=== PATIENT | male | born 1940 | race Caucasian/White ===

== ENCOUNTER 2020-04-21 08:38 | Outpatient (REF) | payer MEDICARE, SELFPAY ==
[2020-04-21 11:11] LABS: MANUAL DIFF FLAG NO
[2020-04-21 11:14] LABS: Basophils Percent Auto 0.4 % (0-2); Eosinophils Absolute Auto 0.1 X10*3/uL (0.0-0.4); Eosinophils Percent Auto 1.6 % (0-4); Hematocrit 40.4 % (42-52); Hemoglobin 13.5 g/dl (14.0-18.0); Imm Gran Abs Auto 0.02 X10*3/uL (0.00-0.03); Imm Gran Pct Auto 0.4 % (0.0-0.4); Lymphocytes Absolute Auto 1.7 X10*3/uL (1.2-4.9); Lymphocytes Percent Auto 29.8 % (20-40); Mean Corpuscular HGB Conc 33.4 g/dl (31.0-36.0); Mean Corpuscular Hemoglobin 30.5 pg (27.0-33.0); Mean Corpuscular Volume 91.4 fL (80-98); Mean Platelet Volume 11.7 fL (9.4-12.4); Monocytes Absolute Auto 0.4 X10*3/uL (0.1-1.2); Monocytes Percent Auto 7.4 % (2-11); Neutrophils Absolute Auto 3.4 X10*3/uL (2.0-8.3); Neutrophils Percent Auto 60.4 % (45-73); Platelet Count 142 X10*3/uL (160-400); Red Blood Count 4.42 X10*6/uL (4.60-5.80); Red Cell Distribution Width 13.2 % (11.0-16.0); White Blood Count 5.6 X10*3/uL (4.8-10.8)
[2020-04-21 11:39] LABS: Estimated Average Glucose 143 mg/dL; Hemoglobin A1c % 6.6 %
[2020-04-21 11:50] LABS: Alanine Aminotransferase 24 U/L (0-40); Albumin Level 4.3 g/dL (3.5-5.0); Alkaline Phosphatase 65 U/L (39-117); Anion Gap 11 (12-20); Aspartate Amino Transferase 28 U/L (5-37); Bilirubin Total 0.9 mg/dL (0.0-1.0); Blood Urea Nitrogen 27 mg/dL (9-16); Calcium 8.8 mg/dL (8.4-10.2); Carbon Dioxide 31 mmol/L (22-29); Chloride 102 mmol/L (96-108); Cholesterol 111 mg/dL; Estimated Glomerular Filt Rate > 60; Glucose Fasting 137 mg/dL (60-99); HDL Cholesterol 33 mg/dL; LDL Cholesterol Calculated 62 mg/dl; Potassium 3.6 mmol/l (3.3-5.1); Sodium 140 mmol/L (135-145); Triglycerides 80 mg/dL; Uric Acid 3.7 mg/dL (3.4-7.0)
[2020-04-21 11:53] LABS: Glucose Urine UA NEG (NEG); Leukocyte Esterase Urine NEG (NEG); Nitrite Urine NEG (NEG); PH 5.5 (5.0-8.0); Specific Gravity - Urine 1.025 (1.005-1.025); Urine Blood NEG (NEG); Urine Ketones NEG (NEG); Urine Protein NEG (NEG-TRACE)
[2020-04-21 11:56] LABS: Appearance Urine CLEAR; Color Urine YELLOW
[2020-04-21 12:14] LABS: Creatinine Urine 108.12 mg/dL; Microalbum/Creatinine Ratio Ur 18.4 ug/mg cr
[2020-04-21 12:15] LABS: Calcium Oxalate Crystals Urine 2+ /LPF; RBC Urine 0 /HPF (0); WBC Urine 0-2 /HPF (0-4)
== END 2020-04-21 08:39 | disposition home or self-care (01) ==
LOC: HO.HMGCLDS 08:38
PROVIDERS: PCP Internal Medicine; Visit Provider Internal Medicine
DX: E11.9 Type 2 diabetes mellitus without complications (principal); E78.5 Hyperlipidemia, unspecified; E55.9 Vitamin D deficiency, unspecified; I10 Essential (primary) hypertension
CPT/HCPCS: 36415; 80053; 80061; 81001; 82043; 82306; 83036; 84550; 85025

== ENCOUNTER 2020-09-01 09:24 | Outpatient (REF) | payer MEDICARE, SELFPAY ==
[2020-09-01 10:26] LABS: MANUAL DIFF FLAG NO
[2020-09-01 10:52] LABS: Glucose Urine UA NEG (NEG); Leukocyte Esterase Urine NEG (NEG); Nitrite Urine NEG (NEG); PH 6.5 (5.0-8.0); Specific Gravity - Urine 1.015 (1.005-1.025); Urine Blood NEG (NEG); Urine Ketones NEG (NEG); Urine Protein NEG (NEG-TRACE)
[2020-09-01 10:54] LABS: Appearance Urine CLEAR; Color Urine YELLOW
[2020-09-01 10:59] LABS: Basophils Percent Auto 0.4 % (0-2); Eosinophils Absolute Auto 0.1 X10*3/uL (0.0-0.4); Hematocrit 38.9 % (42-52); Imm Gran Abs Auto 0.01 X10*3/uL (0.00-0.03); Imm Gran Pct Auto 0.2 % (0.0-0.4); Lymphocytes Absolute Auto 1.6 X10*3/uL (1.2-4.9); Lymphocytes Percent Auto 30.3 % (20-40); Mean Corpuscular HGB Conc 33.4 g/dl (31.0-36.0); Mean Corpuscular Hemoglobin 30.4 pg (27.0-33.0); Mean Corpuscular Volume 91.1 fL (80-98); Mean Platelet Volume 10.9 fL (9.4-12.4); Monocytes Absolute Auto 0.3 X10*3/uL (0.1-1.2); Monocytes Percent Auto 6.4 % (2-11); Neutrophils Absolute Auto 3.1 X10*3/uL (2.0-8.3); Neutrophils Percent Auto 60.7 % (45-73); Platelet Count 158 X10*3/uL (160-400); Red Blood Count 4.27 X10*6/uL (4.60-5.80); Red Cell Distribution Width 13.2 % (11.0-16.0); White Blood Count 5.1 X10*3/uL (4.8-10.8)
[2020-09-01 11:04] LABS: Alanine Aminotransferase 17 U/L (0-40); Albumin Level 4.3 g/dL (3.5-5.0); Alkaline Phosphatase 66 U/L (39-117); Anion Gap 11 (12-20); Aspartate Amino Transferase 26 U/L (5-37); Bilirubin Total 0.9 mg/dL (0.0-1.0); Blood Urea Nitrogen 20 mg/dL (9-16); Calcium 8.7 mg/dL (8.4-10.2); Carbon Dioxide 29 mmol/L (22-29); Chloride 103 mmol/L (96-108); Cholesterol 101 mg/dL; Estimated Glomerular Filt Rate > 60; Glucose Fasting 118 mg/dL (60-99); HDL Cholesterol 27 mg/dL; LDL Cholesterol Calculated 63 mg/dl; Potassium 3.8 mmol/L (3.3-5.1); Sodium 139 mmol/L (135-145); Total Protein 6.7 g/dL (6.5-8.0); Triglycerides 59 mg/dL
[2020-09-01 11:15] LABS: Uric Acid 3.6 mg/dL (3.4-7.0)
[2020-09-01 11:23] LABS: TSH reflex Free T4 0.99 uIU/mL (0.32-4.0); Vitamin D 25-OH Total 45.5 ng/mL (>30)
[2020-09-01 11:24] LABS: Creatinine Urine 61.56 mg/dL; Microalbumin Urine < 5.0 mg/L
== END 2020-09-01 09:25 | disposition home or self-care (01) ==
LOC: HO.LAB 09:24
PROVIDERS: PCP Internal Medicine; Visit Provider Internal Medicine
DX: I10 Essential (primary) hypertension (principal); I25.10 Atherosclerotic heart disease of native coronary artery without angina pectoris; E78.00 Pure hypercholesterolemia, unspecified; E11.9 Type 2 diabetes mellitus without complications; E55.9 Vitamin D deficiency, unspecified; M10.9 Gout, unspecified
CPT/HCPCS: 36415; 80053; 80061; 81003; 82043; 82306; 84443; 84550; 85025

== ENCOUNTER → 2020-09-30 13:30 | Outpatient (BNVA) | payer MEDICARE, SELFPAY | PROVIDERS: PCP Internal Medicine; Visit Provider Surgery | DX: K40.90 Unilateral inguinal hernia, without obstruction or gangrene, not specified as recurrent (principal) | CPT/HCPCS: 99202 ==

== ENCOUNTER 2020-10-15 11:29 | Day surgery (SDC) | payer MEDICARE, SELFPAY ==
[2020-10-11 10:38] VITALS: BMI 24.7
--- NOTE | 2020-10-13 10:55 | P.CONAN_ITS ---
Documented by User: Jasmin Diana 10/14/20 10:42 HPI - Anesthesia Eval Consult details Narrative: 79yo M for Hernia Repair Inguinal with mesh CAD with remote hx of CABG x 2. Does not follow cardiology, PCP only. Denies CP/SOB with regular activity/yard work. PMFSH Active Problems Active Problems: All Active Problems (Updated 10/11/20 @ 10:41 by Roxann Herbert) COVID-19 (Acute) Tick bite of lower leg (Acute) Insect bite hip/leg (Acute) Left inguinal hernia (Acute) Encounter for Medicare annual wellness exam (Acute) Left inguinal hernia (Acute) Vitamin D deficiency (Acute) Gout (Acute) Pure hypercholesterolemia (Acute) Benign essential hypertension (Acute) Diabetes mellitus (Acute) Coronary artery disease (Acute) Past Medical History Medical History Benign essential hypertension Coronary artery disease COVID-19 vaccine series completed Diabetes mellitus Encounter for Medicare annual wellness exam Gout History of COVID-19 History of postoperative nausea Left inguinal hernia Left inguinal hernia Pure hypercholesterolemia Vitamin D deficiency Family History Family History Father CVD (cardiovascular disease) Mother Chronic mental illness Family/Other Liver cancer Surgical History Surgical History History of appendectomy History of heart bypass surgery Hx of colonoscopy Social History Social History Patient Tobacco Use Status: Never used Tobacco Use of substances other than those prescribed or required for medical reasons: No Are you DNR?: No Advance Directives: No Advance Directives Information Provided: No Advance Directives on File: No Meds Allergies Allergy/AdvReac Type Severity Reaction Status Date / Time No Known Allergies Allergy Verified 10/11/20 10:36 Home Medications Medication Instructions Recorded Confirmed Last Taken Type allopurinol 300 mg tablet 300 mg PO DAILY 05/03/20 10/11/20 Unknown History ascorbate calcium (vitamin C) 500 500 mg PO DAILY 05/03/20 10/11/20 Unknown History mg tablet aspirin 81 mg tablet,delayed 81 mg PO DAILY 05/03/20 10/15/20 10/14/20 09:00 History release atenolol 25 mg tablet 25 mg PO DAILY 0110/15/20 10/15/20 07:00 History cholecalciferol (vitamin D3) 25 25 mcg PO DAILY 05/03/20 10/11/20 Unknown History mcg (1,000 unit) capsule omega-3 fatty acids-fish oil 360 1 cap PO DAILY 05/03/20 10/11/20 Unknown History mg-1,200 mg capsule simvastatin 40 mg tablet 40 mg PO QPM 05/03/20 10/11/20 Unknown History Lactobacillus rhamnosus GG 15 15,000 mmu cells PO DAILY 09/30/20 10/11/20 Unknown History billion cell sprinkle capsule Exam Exam Date and Time: October 13, 2020 1055 Height,Weight and Vital Signs: Height 5 ft 7 in Weight 71.668 kg Assessment and Plan Assessment Anesthesia Assessment: Chart Reviewed Documented by User: Meme Giron 10/15/20 12:02 [facility] Past Medical History Medical History Benign essential hypertension Coronary artery disease COVID-19 vaccine series completed Diabetes mellitus Encounter for Medicare annual wellness exam Gout History of COVID-19 History of postoperative nausea Left inguinal hernia Left inguinal hernia Pure hypercholesterolemia Vitamin D deficiency Family History Family History Father CVD (cardiovascular disease) Mother Chronic mental illness Family/Other Liver cancer Surgical History Surgical History History of appendectomy History of heart bypass surgery Hx of colonoscopy Social History Social History Patient Tobacco Use Status: Never used Tobacco Use of substances other than those prescribed or required for medical reasons: No Are you DNR?: No Advance Directives: No Advance Directives Information Provided: No Advance Directives on File: No Meds Allergies Allergy/AdvReac Type Severity Reaction Status Date / Time No Known Allergies Allergy Verified 10/11/20 10:36 Home Medications Medication Instructions Recorded Confirmed Last Taken Type allopurinol 300 mg tablet 300 mg PO DAILY 05/03/20 10/11/20 Unknown History ascorbate calcium (vitamin C) 500 500 mg PO DAILY 05/03/20 10/11/20 Unknown History mg tablet aspirin 81 mg tablet,delayed 81 mg PO DAILY 05/03/20 10/15/20 10/14/20 09:00 History release atenolol 25 mg tablet 25 mg PO DAILY 05/03/20 10/15/20 10/15/20 07:00 History cholecalciferol (vitamin D3) 25 25 mcg PO DAILY 05/03/20 10/11/20 Unknown History mcg (1,000 unit) capsule omega-3 fatty acids-fish oil 360 1 cap PO DAILY 05/03/20 10/11/20 Unknown History mg-1,200 mg capsule simvastatin 40 mg tablet 40 mg PO QPM 05/03/20 10/11/20 Unknown History Lactobacillus rhamnosus GG 15 15,000 mmu cells PO DAILY 09/30/20 10/11/20 Unknown History billion cell sprinkle capsule Exam Airway Mallampati Class: I TM Dist: >3cm Neck ROM: Full
--- NOTE | 2020-10-15 | ECG_ITS ---
Test Reason : CAD, S/P CABG Blood Pressure : / mmHG Vent. Rate : 065 BPM Atrial Rate : 065 BPM P-R Int : 206 ms QRS Dur : 098 ms QT Int : 428 ms P-R-T Axes : 056 005 029 degrees QTc Int : 445 ms Sinus rhythm with Premature atrial complexes Otherwise normal ECG When compared with ECG of 04-DEC-2004 08:19, Premature atrial complexes are now Present Referred By: Jasmin Ortiz Electronically Signed By:PRAVEEN ESPOSITO
[2020-10-15 11:48] VITALS: BP 197/88; PULSE 64; RESP 16; TEMP 36.2; O2SAT 100
--- NOTE | 2020-10-15 11:48 | MHC.SHP ---
Pre-Procedural Eval Section B Chief Complaint: inguinal hernia Allergies: Allergies Allergy/AdvReac Type Severity Reaction Status Date / Time No Known Allergies Allergy Verified 10/11/20 10:36 Plan I have reviewed the history and physical and performed a pertinent physical examination on my patient. No changes have occurred unless specified.
--- NOTE | 2020-10-15 12:20 | PC.NURSE ---
Patient states that he drank about 4oz of water at [address] Giron notified. Okay to proceed with surgery.
[2020-10-15] MEDS: Lactated Ringers 1,000 ML 50 ML IVCONT (12:29)
[2020-10-15] MEDS: ceFAZolin Sodium/Dextrose,Iso 2 GM/50 ML PIGGYBACK IV (12:29)
--- NOTE | 2020-10-15 13:48 | W.PM.OPN ---
Operative Note Operative Note Date of Service: 10/15/20 Narrative: Preop diagnosis: Left inguinal hernia Postop diagnosis: Left inguinal hernia, indirect Procedure: Repair of a left inguinal hernia with mesh Surgeon: Huan Murillo MD No mechanic assistant The patient is a 79-year-old male with reducible left inguinal hernia. In view of symptoms, he wants to proceed with repair. He understood the technique of repair with mesh. He was aware of the risks, benefits, and alternatives He was brought to the operating room and placed supine on the OR table under general anesthesia via laryngeal mask airway. The left groin was prepped and draped in the usual sterile fashion. A surgical time-out was done. The patient received cefazolin 2 g IV preoperatively. I infiltrated the planned line of incision along an imaginary line from the anterior superior iliac spine to the pubic ramus with lidocaine 1%. I made a short incision using blade 15. And this was carried down through the full-thickness of the skin and subcutaneous fat with electrocautery. We continued to dissect through the subcutaneous layer until was able to visualize the external oblique aponeurosis. I bluntly dissected the external oblique aponeurosis with a gauze to identify the external ring. I made an incision on the aponeurosis using a blade 15. And this was extended inferomedially to connect with the external ring. The inguinal canal was therefore entered. I applied graspers at the edges of the divided external oblique aponeurosis. I did blunt dissection of the underside of this aponeurosis to create space for the mesh. I visualized the spermatic cord and its contents and this was inspected. There was note of what appeared to be a large very adherent sac on the anterior aspect. I continued to dissect bluntly with an index finger until was able to pass a [place] drain around this cord. I examined the cord and was able to identify the deferens with difficulty in view of the fibrotic changes. I proceeded to then gently separate the large sac from the rest of the cord contents using blunt dissection with the DeBakey forceps as well as with the cautery. I continued with this process gently with care being taken so as not to create injury to the rest of the cord contents. Continue to dissect this sac all the way down to the internal ring. This was therefore an indirect hernia. I reduced the sac through the ring. I positioned a medium-sized plug to reinforce this internal ring. I secured does plug with Prolene 2-0 sutures to the internal oblique medially and superiorly as well as to the shelving edge of the inguinal meant laterally using its inner leaves. I then excision a keyhole mesh on the floor of the canal. I passed the tails of the mesh around the cord and secured this together with Prolene 2 sutures. I flattened the mesh on the floor of the canal. I secured this mesh with Prolene 2 sutures to the shelving edge of the inguinal and laterally, the pubic ramus inferomedially and the internal oblique superiorly as well as medially. I observed for hemostasis. I irrigated and once hemostasis was confirmed, I closed the external oblique aponeurosis were running Dexon 2-0 stitch to re-create the external ring. I reapposed the subcutaneous layer with Dexon 3-0 interrupted sutures. Skin closure was achieved with Dexon 4-0 subcuticular running stitch. I infiltrated the area around the incision with Marcaine 0.5% for postop analgesia. Steri-Strips and dressings were applied. The procedure was then completed The patient tolerated the procedure well. There were no complications noted. Initial and final counts of sponges and instruments were correct. Estimated blood loss about 10 cc The patient is extubated without difficulty and transferred to the recovery room with stable vital signs.
[2020-10-15 13:52] VITALS: BP 124/60; PULSE 53; RESP 16; TEMP 36.1; O2SAT 100
--- NOTE | 2020-10-15 13:54 | PM.OP ---
Brief Operative Note Date of Service: 10/15/20 Pre-op diagnosis: Left inguinal hernia Post-op diagnosis: same (Indirect) Procedure: Repair of left inguinal hernia with mesh Implants: Mesh and plug Surgeon: Huan Murillo MD Anesthesia: GLMA Was an Rehabilitation Medicine Physician used for this Procedure?: No Estimated blood loss (mL): 10 Pathology: none sent Condition: stable Disposition: PACU
[2020-10-15 13:57] VITALS: BP 122/60; PULSE 52; RESP 16; O2SAT 100
[2020-10-15 14:02] VITALS: BP 124/59; PULSE 60; RESP 16; O2SAT 100
[2020-10-15 14:08] VITALS: BP 136/69; PULSE 70; RESP 16; O2SAT 99
[2020-10-15 14:21] VITALS: BP 155/79; PULSE 57; RESP 16; TEMP 36.1; O2SAT 99
[2020-10-18 05:06] LABS: Glucose, Whole Blood 142 mg/dL (60-115)
== END 2020-10-15 15:30 | disposition home or self-care (01) ==
PROVIDERS: PCP Internal Medicine; Visit Provider Surgery
PROC: (CPT 49505; principal; 2020-10-15 13:00)
DX: K40.90 Unilateral inguinal hernia, without obstruction or gangrene, not specified as recurrent (principal); I25.10 Atherosclerotic heart disease of native coronary artery without angina pectoris; I10 Essential (primary) hypertension; Z95.1 Presence of aortocoronary bypass graft; E11.9 Type 2 diabetes mellitus without complications; Z79.84 Long term (current) use of oral hypoglycemic drugs; Z79.82 Long term (current) use of aspirin; Z79.899 Other long term (current) drug therapy; Z86.16 Personal history of COVID-19
CPT/HCPCS: 49505; 82947; 93005; J0690; J1100; J2250; J2405; J3010

== ENCOUNTER → 2020-10-27 10:50 | Outpatient (BNVA) | payer MEDICARE, SELFPAY | PROVIDERS: PCP Internal Medicine; Visit Provider Surgery | DX: Z48.815 Encounter for surgical aftercare following surgery on the digestive system (principal); Z87.19 Personal history of other diseases of the digestive system | CPT/HCPCS: 99212 ==

== ENCOUNTER → 2020-11-29 09:47 | Outpatient (BNVA) | payer MEDICARE, SELFPAY | PROVIDERS: PCP Internal Medicine; Referring Provider Internal Medicine; Visit Provider Surgery | DX: K40.90 Unilateral inguinal hernia, without obstruction or gangrene, not specified as recurrent (principal); I10 Essential (primary) hypertension; E11.9 Type 2 diabetes mellitus without complications; E78.00 Pure hypercholesterolemia, unspecified; E55.9 Vitamin D deficiency, unspecified; Z79.84 Long term (current) use of oral hypoglycemic drugs; Z79.899 Other long term (current) drug therapy | CPT/HCPCS: 99212 ==

== ENCOUNTER 2021-01-14 08:41 | Outpatient (REF) | payer MEDICARE, SELFPAY ==
[2021-01-14 11:22] LABS: MANUAL DIFF FLAG NO
[2021-01-14 11:33] LABS: Basophils Percent Auto 0.3 % (0-2); Eosinophils Absolute Auto 0.1 X10*3/uL (0.0-0.4); Eosinophils Percent Auto 2.1 % (0-4); Hematocrit 39.7 % (42-52); Hemoglobin 13.4 g/dl (14.0-18.0); Imm Gran Abs Auto 0.02 X10*3/uL (0.00-0.03); Imm Gran Pct Auto 0.3 % (0.0-0.4); Lymphocytes Absolute Auto 1.9 X10*3/uL (1.2-4.9); Lymphocytes Percent Auto 30.9 % (20-40); Mean Corpuscular HGB Conc 33.8 g/dl (31.0-36.0); Mean Corpuscular Hemoglobin 30.5 pg (27.0-33.0); Mean Corpuscular Volume 90.2 fL (80-98); Mean Platelet Volume 11.5 fL (9.4-12.4); Monocytes Absolute Auto 0.4 X10*3/uL (0.1-1.2); Monocytes Percent Auto 6.1 % (2-11); Neutrophils Absolute Auto 3.8 X10*3/uL (2.0-8.3); Neutrophils Percent Auto 60.3 % (45-73); Platelet Count 163 X10*3/uL (160-400); Red Cell Distribution Width 13.1 % (11.0-16.0); White Blood Count 6.3 X10*3/uL (4.8-10.8)
[2021-01-14 11:49] LABS: Appearance Urine CLEAR; Color Urine YELLOW; Glucose Urine UA NEG (NEG); Leukocyte Esterase Urine NEG (NEG); Nitrite Urine NEG (NEG); Specific Gravity - Urine 1.015 (1.005-1.025); Urine Blood NEG (NEG); Urine Ketones NEG (NEG); Urine Protein NEG (NEG-TRACE)
[2021-01-14 12:13] LABS: TSH reflex Free T4 2.19 uIU/mL (0.32-4.0); Vitamin D 25-OH Total 43.6 ng/mL (>30)
[2021-01-14 12:37] LABS: Alanine Aminotransferase 19 U/L (0-40); Albumin Level 4.4 g/dL (3.5-5.0); Alkaline Phosphatase 67 U/L (39-117); Anion Gap 14 (12-20); Aspartate Amino Transferase 23 U/L (5-37); Blood Urea Nitrogen 23 mg/dL (9-16); Carbon Dioxide 28 mmol/L (22-29); Chloride 102 mmol/L (96-108); Cholesterol 122 mg/dL; Estimated Glomerular Filt Rate > 60; Glucose Fasting 129 mg/dL (60-99); HDL Cholesterol 35 mg/dL; LDL Cholesterol Calculated 70 mg/dl; Potassium 3.5 mmol/L (3.3-5.1); Sodium 140 mmol/L (135-145); Total Protein 6.9 g/dL (6.5-8.0); Triglycerides 89 mg/dL; Uric Acid 3.9 mg/dL (3.4-7.0)
[2021-01-14 12:53] LABS: Creatinine Urine 105.25 mg/dL; Microalbum/Creatinine Ratio Ur 4.7 ug/mg cr
== END 2021-01-14 08:42 | disposition home or self-care (01) ==
LOC: HO.HMGCLDS 08:41
PROVIDERS: PCP Internal Medicine; Visit Provider Internal Medicine
DX: I10 Essential (primary) hypertension (principal); E11.9 Type 2 diabetes mellitus without complications; E78.00 Pure hypercholesterolemia, unspecified; I25.10 Atherosclerotic heart disease of native coronary artery without angina pectoris; M10.9 Gout, unspecified; E55.9 Vitamin D deficiency, unspecified
CPT/HCPCS: 36415; 80053; 80061; 81003; 82043; 82306; 84443; 84550; 85025

== ENCOUNTER 2021-01-28 11:59 | Outpatient (REF) | payer MEDICARE, SELFPAY ==
[2021-01-28 14:32] LABS: Prostate Specific Antigen 1.91 ng/mL (<0.05-4.0)
== END 2021-01-28 12:00 | disposition home or self-care (01) ==
LOC: HO.HMGCLDS 11:59
PROVIDERS: PCP Internal Medicine; Visit Provider Internal Medicine
DX: Z12.5 Encounter for screening for malignant neoplasm of prostate (principal); N40.1 Benign prostatic hyperplasia with lower urinary tract symptoms; R35.0 Frequency of micturition
CPT/HCPCS: 36415; 84153

== ENCOUNTER 2021-05-13 08:23 | Outpatient (REF) | payer MEDICARE, SELFPAY ==
[2021-05-13 12:07] LABS: Alanine Aminotransferase 17 U/L (0-40); Alkaline Phosphatase 67 U/L (39-117); Anion Gap 14 (12-20); Aspartate Amino Transferase 22 U/L (5-37); Bilirubin Total 0.9 mg/dL (0.0-1.0); Blood Urea Nitrogen 26 mg/dL (9-16); Calcium 9.1 mg/dL (8.4-10.2); Carbon Dioxide 29 mmol/L (22-29); Chloride 103 mmol/L (96-108); Cholesterol 110 mg/dL; Estimated Glomerular Filt Rate > 60; Glucose Fasting 121 mg/dL (60-99); HDL Cholesterol 28 mg/dL; LDL Cholesterol Calculated 68 mg/dl; Potassium 3.8 mmol/L (3.3-5.1); Sodium 142 mmol/L (135-145); Total Protein 6.7 g/dL (6.5-8.0); Triglycerides 71 mg/dL
== END 2021-05-13 08:24 | disposition home or self-care (01) ==
LOC: HO.HMGCLDS 08:23
PROVIDERS: PCP Internal Medicine; Visit Provider Internal Medicine
DX: E78.00 Pure hypercholesterolemia, unspecified (principal)
CPT/HCPCS: 36415; 80053; 80061

== ENCOUNTER 2021-09-21 08:43 | Outpatient (REF) | payer MEDICARE, SELFPAY ==
[2021-09-21 11:15] LABS: MANUAL DIFF FLAG NO
[2021-09-21 11:22] LABS: Basophils Percent Auto 0.4 % (0-2); Eosinophils Absolute Auto 0.2 X10*3/uL (0.0-0.4); Eosinophils Percent Auto 2.7 % (0-4); Hemoglobin 13.2 g/dl (14.0-18.0); Imm Gran Abs Auto 0.02 X10*3/uL (0.00-0.03); Imm Gran Pct Auto 0.4 % (0.0-0.4); Lymphocytes Absolute Auto 1.9 X10*3/uL (1.2-4.9); Mean Corpuscular HGB Conc 33.8 g/dl (31.0-36.0); Mean Corpuscular Hemoglobin 30.9 pg (27.0-33.0); Mean Corpuscular Volume 91.3 fL (80.0-98.0); Mean Platelet Volume 12.1 fL (9.4-12.4); Monocytes Absolute Auto 0.4 X10*3/uL (0.1-1.2); Monocytes Percent Auto 7.8 % (2-11); Neutrophils Absolute Auto 3.1 x10*3/uL (2.0-8.3); Neutrophils Percent Auto 55.7 % (45-73); Platelet Count 154 X10*3/uL (160-400); Red Blood Count 4.27 X10*6/uL (4.60-5.80); Red Cell Distribution Width 13.2 % (11.0-16.0); White Blood Count 5.6 X10*3/uL (4.8-10.8)
[2021-09-21 11:30] LABS: Estimated Average Glucose 143 mg/dL; Hemoglobin A1c % 6.6 %
[2021-09-21 11:43] LABS: Appearance Urine CLEAR; Color Urine YELLOW; Glucose Urine UA NEG (NEG); Leukocyte Esterase Urine NEG (NEG); Nitrite Urine NEG (NEG); Specific Gravity - Urine 1.015 (1.005-1.025); Urine Blood NEG (NEG); Urine Ketones NEG (NEG); Urine Protein NEG (NEG-TRACE)
[2021-09-21 11:54] LABS: TSH reflex Free T4 2.06 uIU/mL (0.32-4.0); Vitamin D 25-OH Total 45.2 ng/mL (>30)
[2021-09-21 11:57] LABS: Alanine Aminotransferase 18 U/L (0-40); Albumin Level 4.2 g/dL (3.5-5.0); Alkaline Phosphatase 65 U/L (39-117); Anion Gap 13 (12-20); Aspartate Amino Transferase 23 U/L (5-37); Bilirubin Total 0.7 mg/dL (0.0-1.0); Blood Urea Nitrogen 19 mg/dL (9-16); Calcium 9.4 mg/dL (8.4-10.2); Carbon Dioxide 28 mmol/L (22-29); Chloride 102 mmol/L (96-108); Cholesterol 101 mg/dL; Estimated Glomerular Filt Rate > 60; Glucose Fasting 121 mg/dL (60-99); HDL Cholesterol 28 mg/dL; LDL Cholesterol Calculated 64 mg/dl; Potassium 3.7 mmol/L (3.3-5.1); Sodium 139 mmol/L (135-145); Triglycerides 49 mg/dL
[2021-09-21 12:23] LABS: Microalbum/Creatinine Ratio Ur 8.3 ug/mg cr
== END 2021-09-21 08:44 | disposition home or self-care (01) ==
LOC: HO.HMGCLDS 08:43
PROVIDERS: PCP Internal Medicine; Visit Provider Internal Medicine
DX: E78.00 Pure hypercholesterolemia, unspecified (principal); E55.9 Vitamin D deficiency, unspecified; E11.9 Type 2 diabetes mellitus without complications; I10 Essential (primary) hypertension
CPT/HCPCS: 36415; 80053; 80061; 81003; 82043; 82306; 83036; 84443; 85025

== ENCOUNTER 2022-01-12 08:34 | Outpatient (REF) | payer MEDICARE, SELFPAY ==
[2022-01-12 11:04] LABS: MANUAL DIFF FLAG NO
[2022-01-12 11:27] LABS: Basophils Percent Auto 0.4 % (0-2); Eosinophils Absolute Auto 0.1 X10*3/uL (0.0-0.4); Eosinophils Percent Auto 2.3 % (0-4); Hematocrit 38.7 % (42.0-52.0); Imm Gran Abs Auto 0.02 X10*3/uL (0.00-0.03); Imm Gran Pct Auto 0.4 % (0.0-0.4); Lymphocytes Percent Auto 34.9 % (20-40); Mean Corpuscular HGB Conc 33.6 g/dl (31.0-36.0); Mean Corpuscular Hemoglobin 30.7 pg (27.0-33.0); Mean Corpuscular Volume 91.3 fL (80.0-98.0); Mean Platelet Volume 12.1 fL (9.4-12.4); Monocytes Absolute Auto 0.4 X10*3/uL (0.1-1.2); Monocytes Percent Auto 7.5 % (2-11); Neutrophils Absolute Auto 3.1 x10*3/uL (2.0-8.3); Neutrophils Percent Auto 54.5 % (45-73); Platelet Count 135 X10*3/uL (160-400); Red Blood Count 4.24 X10*6/uL (4.60-5.80); Red Cell Distribution Width 13.2 % (11.0-16.0); White Blood Count 5.6 X10*3/uL (4.8-10.8)
[2022-01-12 11:41] LABS: Appearance Urine Clear; Color Urine Yellow; Glucose Urine UA Negative (Negative); Leukocyte Esterase Urine Negative (Negative); Nitrite Urine Negative (Negative); PH 5.5 (5.0-9.0); Specific Gravity - Urine 1.015 (1.005-1.025); Urine Blood Negative (Negative); Urine Ketones Negative (Negative); Urine Protein Negative (Neg-Trace)
[2022-01-12 11:53] LABS: Alanine Aminotransferase 21 U/L (0-40); Albumin Level 4.3 g/dL (3.5-5.0); Alkaline Phosphatase 63 U/L (39-117); Anion Gap 15 (12-20); Aspartate Amino Transferase 26 U/L (5-37); Bilirubin Total 0.9 mg/dL (0.0-1.0); Blood Urea Nitrogen 21 mg/dL (9-16); Carbon Dioxide 29 mmol/L (22-29); Chloride 102 mmol/L (96-108); Cholesterol 104 mg/dL; Estimated Glomerular Filt Rate > 60; Glucose Fasting 112 mg/dL (60-99); HDL Cholesterol 31 mg/dL; LDL Cholesterol Calculated 61 mg/dl; Potassium 3.6 mmol/L (3.3-5.1); Sodium 142 mmol/L (135-145); TSH reflex Free T4 2.13 uIU/mL (0.32-4.0); Total Protein 6.9 g/dL (6.5-8.0); Triglycerides 61 mg/dL; Uric Acid 3.7 mg/dL (3.4-7.0); Vitamin D 25-OH Total 53.5 ng/mL (>30)
[2022-01-12 11:54] LABS: Estimated Average Glucose 143 mg/dL; Hemoglobin A1c % 6.6 %
[2022-01-12 12:02] LABS: Creatinine Urine 96.95 mg/dL; Microalbum/Creatinine Ratio Ur 7.2 ug/mg cr
== END 2022-01-12 08:35 | disposition home or self-care (01) ==
LOC: HO.HMGCLDS 08:34
PROVIDERS: PCP Internal Medicine; Visit Provider Internal Medicine
DX: E55.9 Vitamin D deficiency, unspecified (principal); E11.9 Type 2 diabetes mellitus without complications; E78.00 Pure hypercholesterolemia, unspecified; M10.9 Gout, unspecified; I10 Essential (primary) hypertension
CPT/HCPCS: 36415; 80053; 80061; 81003; 82043; 82306; 83036; 84443; 84550; 85025

== ENCOUNTER 2022-05-24 08:40 | Outpatient (REF) | payer MEDICARE, SELFPAY ==
[2022-05-24 11:16] LABS: Appearance Urine Clear; Color Urine Yellow; Glucose Urine UA Negative (Negative); Leukocyte Esterase Urine Negative (Negative); Nitrite Urine Negative (Negative); PH 5.5 (5.0-9.0); Urine Blood Negative (Negative); Urine Ketones Negative (Negative); Urine Protein Negative (Neg-Trace)
[2022-05-24 11:18] LABS: MANUAL DIFF FLAG NO
[2022-05-24 11:32] LABS: Basophils Percent Auto 0.3 % (0-2); Eosinophils Absolute Auto 0.1 X10*3/uL (0.0-0.4); Eosinophils Percent Auto 1.8 % (0-4); Hematocrit 39.7 % (42.0-52.0); Hemoglobin 13.3 g/dl (14.0-18.0); Imm Gran Abs Auto 0.02 X10*3/uL (0.00-0.03); Imm Gran Pct Auto 0.3 % (0.0-0.4); Lymphocytes Absolute Auto 1.9 X10*3/uL (1.2-4.9); Lymphocytes Percent Auto 30.7 % (20-40); Mean Corpuscular HGB Conc 33.5 g/dl (31.0-36.0); Mean Corpuscular Hemoglobin 29.8 pg (27.0-33.0); Mean Corpuscular Volume 88.8 fL (80.0-98.0); Mean Platelet Volume 11.7 fL (9.4-12.4); Monocytes Absolute Auto 0.4 X10*3/uL (0.1-1.2); Monocytes Percent Auto 6.7 % (2-11); Neutrophils Absolute Auto 3.7 x10*3/uL (2.0-8.3); Neutrophils Percent Auto 60.2 % (45-73); Platelet Count 142 X10*3/uL (160-400); Red Blood Count 4.47 X10*6/uL (4.60-5.80); Red Cell Distribution Width 12.9 % (11.0-16.0); White Blood Count 6.2 X10*3/uL (4.8-10.8)
[2022-05-24 12:05] LABS: Alanine Aminotransferase 16 U/L (0-40); Albumin Level 4.2 g/dL (3.5-5.0); Alkaline Phosphatase 69 U/L (39-117); Anion Gap 14 (12-20); Aspartate Amino Transferase 22 U/L (5-37); Blood Urea Nitrogen 22 mg/dL (9-16); Carbon Dioxide 29 mmol/L (22-29); Chloride 102 mmol/L (96-108); Cholesterol 91 mg/dL; Estimated Glomerular Filt Rate > 60; Glucose Fasting 122 mg/dL (60-99); HDL Cholesterol 29 mg/dL; LDL Cholesterol Calculated 50 mg/dl; Potassium 3.7 mmol/L (3.3-5.1); Sodium 141 mmol/L (135-145); Total Protein 6.6 g/dL (6.5-8.0); Triglycerides 60 mg/dL; Uric Acid 3.1 mg/dL (3.4-7.0)
[2022-05-24 12:23] LABS: TSH reflex Free T4 1.93 uIU/mL (0.32-4.0)
[2022-05-24 12:31] LABS: Estimated Average Glucose 157 mg/dL; Hemoglobin A1c % 7.1 %
== END 2022-05-24 08:41 | disposition home or self-care (01) ==
LOC: HO.HMGCLDS 08:40
PROVIDERS: PCP Internal Medicine; Visit Provider Internal Medicine
DX: M10.9 Gout, unspecified (principal); E78.00 Pure hypercholesterolemia, unspecified; E11.9 Type 2 diabetes mellitus without complications; I10 Essential (primary) hypertension
CPT/HCPCS: 36415; 80053; 80061; 81003; 83036; 84443; 84550; 85025

== ENCOUNTER 2022-09-26 08:17 | Outpatient (REF) | payer MEDICARE, SELFPAY ==
[2022-09-26 11:08] LABS: MANUAL DIFF FLAG NO
[2022-09-26 11:18] LABS: Appearance Urine Clear; Color Urine Yellow; Glucose Urine UA Negative (Negative); Leukocyte Esterase Urine Negative (Negative); Nitrite Urine Negative (Negative); PH 5.5 (5.0-9.0); Urine Blood Negative (Negative); Urine Ketones Negative (Negative); Urine Protein Negative (Neg-Trace)
[2022-09-26 11:46] LABS: Estimated Average Glucose 137 mg/dL; Hemoglobin A1C 161.7941 umol/L; Hemoglobin A1c % 6.4 %
[2022-09-26 11:52] LABS: Creatinine Urine 105.36 mg/dL; Microalbum/Creatinine Ratio Ur 8.5 ug/mg cr
[2022-09-26 11:58] LABS: Basophils Percent Auto 0.5 % (0-2); Eosinophils Absolute Auto 0.1 X10*3/uL (0.0-0.4); Eosinophils Percent Auto 2.2 % (0-4); Hematocrit 39.4 % (42.0-52.0); Imm Gran Abs Auto 0.02 X10*3/uL (0.00-0.03); Imm Gran Pct Auto 0.3 % (0.0-0.4); Lymphocytes Absolute Auto 1.8 X10*3/uL (1.2-4.9); Lymphocytes Percent Auto 31.2 % (20-40); Mean Corpuscular Hemoglobin 30.7 pg (27.0-33.0); Mean Corpuscular Volume 93.1 fL (80.0-98.0); Mean Platelet Volume 12.4 fL (9.4-12.4); Monocytes Absolute Auto 0.4 X10*3/uL (0.1-1.2); Monocytes Percent Auto 7.3 % (2-11); Neutrophils Absolute Auto 3.4 x10*3/uL (2.0-8.3); Neutrophils Percent Auto 58.5 % (45-73); Platelet Count 147 X10*3/uL (160-400); Red Blood Count 4.23 X10*6/uL (4.60-5.80); Red Cell Distribution Width 13.4 % (11.0-16.0); White Blood Count 5.9 X10*3/uL (4.8-10.8)
[2022-09-26 12:01] LABS: Alanine Aminotransferase 18 U/L (0-40); Albumin Level 4.2 g/dL (3.5-5.0); Alkaline Phosphatase 62 U/L (39-117); Anion Gap 12 (12-20); Aspartate Amino Transferase 23 U/L (5-37); Blood Urea Nitrogen 24 mg/dL (9-16); Calcium 9.1 mg/dL (8.4-10.2); Carbon Dioxide 30 mmol/L (22-29); Chloride 104 mmol/L (96-108); Cholesterol 103 mg/dL; Estimated Glomerular Filt Rate > 60; Glucose Fasting 110 mg/dL (60-99); HDL Cholesterol 29 mg/dL; LDL Cholesterol Calculated 62 mg/dl; Potassium 3.6 mmol/L (3.3-5.1); Sodium 142 mmol/L (135-145); Total Protein 6.6 g/dL (6.5-8.0); Triglycerides 62 mg/dL
[2022-09-26 12:29] LABS: TSH reflex Free T4 2.31 uIU/mL (0.32-4.0); Vitamin D 25-OH Total 50.9 ng/mL (>30)
[2022-09-26 12:47] LABS: Uric Acid 3.6 mg/dL (3.4-7.0)
== END 2022-09-26 08:18 | disposition home or self-care (01) ==
LOC: HO.HMGCLDS 08:17
PROVIDERS: PCP Internal Medicine; Visit Provider Internal Medicine
DX: E78.00 Pure hypercholesterolemia, unspecified (principal); E11.9 Type 2 diabetes mellitus without complications; M10.9 Gout, unspecified; I10 Essential (primary) hypertension; R30.0 Dysuria; E55.9 Vitamin D deficiency, unspecified
CPT/HCPCS: 36415; 80053; 80061; 81003; 82043; 82306; 83036; 84443; 84550; 85025

== ENCOUNTER 2023-01-29 08:52 | Outpatient (REF) | payer MEDICARE, SELFPAY ==
[2023-01-29 11:28] LABS: Appearance Urine Clear; Color Urine Yellow; Glucose Urine UA Negative (Negative); Leukocyte Esterase Urine Negative (Negative); Nitrite Urine Negative (Negative); Urine Blood Negative (Negative); Urine Ketones Negative (Negative); Urine Protein Negative (Neg-Trace)
[2023-01-29 11:33] LABS: MANUAL DIFF FLAG NO
[2023-01-29 11:52] LABS: Basophils Percent Auto 0.6 % (0-2); Eosinophils Absolute Auto 0.1 X10*3/uL (0.0-0.4); Eosinophils Percent Auto 1.6 % (0-4); Hematocrit 39.3 % (42.0-52.0); Hemoglobin 13.1 g/dl (14.0-18.0); Imm Gran Abs Auto 0.02 X10*3/uL (0.00-0.03); Imm Gran Pct Auto 0.3 % (0.0-0.4); Lymphocytes Absolute Auto 1.9 X10*3/uL (1.2-4.9); Lymphocytes Percent Auto 29.5 % (20-40); Mean Corpuscular HGB Conc 33.3 g/dl (31.0-36.0); Mean Corpuscular Hemoglobin 30.5 pg (27.0-33.0); Mean Corpuscular Volume 91.4 fL (80.0-98.0); Monocytes Absolute Auto 0.7 X10*3/uL (0.1-1.2); Monocytes Percent Auto 11.7 % (2-11); Neutrophils Absolute Auto 3.6 x10*3/uL (2.0-8.3); Neutrophils Percent Auto 56.3 % (45-73); Platelet Count 169 X10*3/uL (160-400); Red Cell Distribution Width 13.5 % (11.0-16.0); White Blood Count 6.3 X10*3/uL (4.8-10.8)
[2023-01-29 12:01] LABS: Estimated Average Glucose 140 mg/dL; Hemoglobin A1c % 6.5 % (<6.0)
[2023-01-29 12:29] LABS: Alanine Aminotransferase 11 U/L (0-40); Alkaline Phosphatase 69 U/L (39-117); Anion Gap 14 (12-20); Aspartate Amino Transferase 18 U/L (5-37); Bilirubin Total 0.5 mg/dL (0.0-1.0); Blood Urea Nitrogen 31 mg/dL (9-16); Calcium 9.3 mg/dL (8.4-10.2); Carbon Dioxide 28 mmol/L (22-29); Chloride 98 mmol/L (96-108); Cholesterol 79 mg/dL (<200); Estimated Glomerular Filt Rate > 60; Glucose Fasting 156 mg/dL (60-99); HDL Cholesterol 26 mg/dL (>40); LDL Cholesterol Calculated 41 mg/dL (<100); Potassium 3.6 mmol/L (3.3-5.1); Sodium 136 mmol/L (135-145); Total Protein 6.7 g/dL (6.5-8.0); Triglycerides 61 mg/dL (<150); Uric Acid 4.1 mg/dL (3.4-7.0)
[2023-01-29 12:48] LABS: TSH reflex Free T4 1.77 uIU/mL (0.32-4.0); Vitamin D 25-OH Total 60.1 ng/mL (>30)
[2023-01-29 12:58] LABS: Microalbum/Creatinine Ratio Ur 9.2 ug/mg cr (<30)
== END 2023-01-29 08:53 | disposition home or self-care (01) ==
LOC: HO.HMGCLDS 08:52
PROVIDERS: PCP Internal Medicine; Visit Provider Internal Medicine
DX: E11.9 Type 2 diabetes mellitus without complications (principal); I10 Essential (primary) hypertension; E78.00 Pure hypercholesterolemia, unspecified; E55.9 Vitamin D deficiency, unspecified; M10.9 Gout, unspecified; R30.0 Dysuria
CPT/HCPCS: 36415; 80053; 80061; 81003; 82043; 82306; 82570; 83036; 84443; 84550; 85025

== ENCOUNTER 2023-01-30 13:22 | Outpatient (AMB) | payer MEDICARE, SELFPAY ==
[2023-01-30 13:26] VITALS: BP 122/78; PULSE 78; O2SAT 99; BMI 24.0
--- NOTE | 2023-01-30 13:26 | MHC.PC.OV ---
Vital Signs 01/30/23 13:26 Height 5 ft 7 in Weight 153 lb BMI 24.0 BP 122/78 Blood Pressure Location Lt brachial Position Sitting Pulse 78 Pulse Source Pulse Oximeter Pulse Oximetry (%) 99 Oxygen Delivery Method Room Air Intake Visit Reasons: 4 month f/u Cardroom Drawing Runner Required: No Accompanied by: Self / Same As Patient Allergies No Known Allergies Allergy (Verified 01/30/23 13:54) Medication List - Last Reconciled 01/30/23 by Rafael Sanchez MD allopurinol 300 mg PO DAILY ascorbate calcium (vitamin C) 500 mg PO DAILY aspirin (Adult Aspirin Regimen) 81 mg PO DAILY atenolol 25 mg PO DAILY blood sugar diagnostic (FreeStyle Lite Strips) 1 strip miscellaneous TID cholecalciferol (vitamin D3) 25 mcg PO DAILY hydrochlorothiazide 25 mg PO DAILY Lactobacillus rhamnosus GG (Culturelle) 15,000 mmu cells PO DAILY lancets (FreeStyle Lancets) 1 gauge topical TID losartan 100 mg PO DAILY metformin 1,000 mg PO BID omega-3 fatty acids-fish oil 360-1,200 mg (Fish Oil) 1 cap PO DAILY simvastatin 40 mg PO QPM Tradjenta (linagliptin) 5 mg PO DAILY 90 days NS Tobacco use date assessed: 01/30/23 Fall risk assessment: No Falls in past year Last assessed Fall Risk: 01/30/23 Dental Screening Dental Screen Date: 01/30/23 Did you have a dental visit in the last 12 months?: Yes Did you have a dental problem in the last 6 months where you did not have access to dental care?: No Was dental information given to patient?: Patient has dentist HPI 4 month f/u HPI Details Patient comes in today for his follow up visit States that he feels okay Had a bout of stomach virus a couple of weeks ago wherein he was having diarrhea and throwing up a lot; has lost some weight as a result States that he is now back to normal and eating better although he still feels somewhat weak He denies any headaches or dizziness; denies any fever Denies any chest pains, no SOB No nausea/vomiting, no abdominal pain No change in bowel habits noted Had his follow up labs done yesterday - to discuss his results [facility] Medical History COVID-19 vaccine series completed History of COVID-19 History of postoperative nausea Left inguinal hernia Left inguinal hernia Vitamin D deficiency Gout Pure hypercholesterolemia Benign essential hypertension Diabetes mellitus Coronary artery disease Surgical History S/P left inguinal hernia repair (~10/15/20) Hx of colonoscopy (~04/2011) History of heart bypass surgery History of appendectomy Family History Father CVD (cardiovascular disease) Mother Chronic mental illness Family/Other Liver cancer Other Mental health problem Social History Housing: House Alcohol intake: current Alcohol intake frequency: holidays/special occasions only Patient Tobacco Use Status: Never used Tobacco e-Cigarette/Vaping Use: Never Used Second Hand Smoke Exposure: Yes service: Yes Current occupational status: retired Cognitive needs: No Hearing needs: No Vision needs: Yes Questionnaire PHQ-9 Over the last 2 weeks, how often have you been bothered by any of the following problems? 1. Little interest or pleasure in doing things: not at all 2. Feeling down, depressed, or hopeless: not at all 3. Trouble falling or staying asleep, or sleeping too much: not at all 4. Feeling tired or having little energy: not at all 5. Poor appetite or overeating: not at all 6. Feeling bad about yourself - or that you are a failure or have let yourself or your family down: not at all 7. Trouble concentrating on things, such as reading the newspaper or watching television: not at all 8. Moving or speaking so slowly that other people could have noticed. Or the opposite - being so fidgety or restless that you have been moving around a lot more than usual: not at all 9. Thoughts that you would be better off or of hurting yourself in some way: not at all Total score: 0 Depression Screening Interpretation: Negative Depression Screening Done: Yes 23183 - PHQ-9 Billing: Yes Source: Developed by Drs. Jonatan Arenas, Rowena Grewal, Carlos Saldivar and colleagues, with an educational luh from [employer]. Thrive Questionnaire Date Thrive assessed: 01/30/23 I am a: Patient What is your living situation today?: I have a steady place to live Within the past 12 months, did the food you bought not last and you didn't have the money to get more?: Never true Within the past 12 months, did you worry whether your food would run out before you got money to buy more?: Never true Do you have trouble paying for medicines?: No Do you have trouble getting transportation to medical appointments?: No Do you have trouble paying your heating and electricity bill?: No Do you have trouble taking care of your child, family member or friend?: No Do you have trouble with day-to-day activities such as bathing, preparing meals, shopping, managing finances, etc.?: No Are you currently unemployed and looking for a job?: No Are you interested in more education?: No Please select the resources that you would like help with: None Currently or been in a relationship where the following occur: no concerns reported AUDIT C Alcohol Use Questionnaire (AUDIT-C) 1. How often do you have a drink containing alcohol?: Monthly or less 2. How many drinks containing alcohol do you have on a typical day when you are drinking?: 1 or 2 3. How often do you have six or more drinks on one occasion?: Never Total Score: 1 Score Reviewed/Action Taken: Yes RAIMUNDO-7 AMB Questionnaire RAIMUNDO-7 Date RAIMUNDO - 7 assessed: 01/30/23 Feeling nervous, anxious, or on edge: 0 = Not at all Not being able to stop or control worryin = Not at all Worrying too much about different things: 0 = Not at all Trouble relaxin = Not at all Being so restless that it is hard to sit still: 0 = Not at all Becoming easily annoyed or irritable: 0 = Not at all Feeling afraid as if something awful might happen: 0 = Not at all Total RAIMUNDO-7 score (0-4 normal; 5-9 mild; 10-14 moderate; 15-21 severe): 0 Source: Developed by Drs. Jonatan Arenas, Rowena Grewal, Carlos Saldivar and colleagues, with an educational luh from [employer]. Review of Systems Const Denies chills, Denies fatigue, Denies fever(s) and Denies headache(s) ENT Denies dysphagia, Denies dizziness, Denies otalgia, Denies headache(s), Denies odynophagia and Denies sore throat Card Denies chest pain, Denies palpitations and Denies dyspnea Resp Denies cough and Denies dyspnea GI Denies abdominal pain, Denies constipation, Denies dysphagia, Denies heartburn, Denies diarrhea, Denies nausea, Denies odynophagia and Denies vomiting Denies dysuria, Denies nocturia and Denies urinary frequency Neuro Denies dizziness and Denies headache(s) Endo Denies fatigue and Denies palpitations Physical exam (Primary Care) Vital Signs: Last Vital Signs Pulse 78 01/30/23 13:26 BP 122/78 01/30/23 13:26 Pulse Ox 99 01/30/23 13:26 Oxygen Delivery Method Room Air 01/30/23 13:26 BMI result Body Mass Index 24.0 Tobacco/Smoking Status: Tobacco use Status Tobacco use date assessed 01/30/23 01/30/23 13:32 Patient Tobacco Use Status Never used Tobacco 01/30/23 13:32 e-Cigarette/Vaping Use Never Used 01/30/23 13:32 PHQ-9: PHQ-9 Score PHQ-9: Total score 0 01/30/23 13:57 Depression Screening Interpretation: Negative Thrive Assessment: Date of Thrive Assessment Date Thrive assessed 01/30/23 01/30/23 13:32 Currently or been in a relationship where the following occur: no concerns reported Const General: no acute distress and alert HENMT Ears: TM's normal bilaterally and EAC's normal Throat: Yes posterior oropharynx normal and Yes tonsils normal (no TP congestion) Neck Neck: Yes no lymphadenopathy and Yes supple Resp Auscultation: clear to auscultation bilaterally, no rales and no wheezes Cardio Rate: regular rate Rhythm: regular rhythm Heart sounds: no murmurs GI Palpation (GI): Soft to palpation and nontender Auscultation: normal bowel sounds Skin Rashes: no rashes Extrem General: Yes no clubbing, cyanosis or edema Office Procedures Flu Questionnaire Does the patient have a severe egg allergy?: No Immunizations flu vacc [id number] 6mos up(PF) 60 mcg(15 mcgx4)/0.5 mL IM syringe Performing Provider: Rafael Sanchez MD [facility] Documented (not given) by: Kareem Tee on 01/30/23 13:36 Reason Not Given: Patient Refused Results Reviewed Results Reviewed: Laboratory Tests 01/29/23 01/29/23 01/29/23 08:15 08:15 08:18 WBC 6.3 Hgb 13.1 L Hct 39.3 L Plt Count 169 Sodium 136 Potassium 3.6 Creatinine 0.94 Estimated GFR > 60 Fasting Glucose 156 H Hemoglobin A1c % 6.5 H Uric Acid Calcium AST ALT Triglycerides Cholesterol LDL Cholesterol, Calc HDL Cholesterol 25-OH Vitamin D Total TSH Ur Specific [place] Urine Protein Urine Glucose (UA) Urine Blood Microalb/Creat Ratio 01/29/23 01/29/23 08:18 08:20 WBC Hgb Hct Plt Count Sodium Potassium Creatinine Estimated GFR Fasting Glucose Hemoglobin A1c % Uric Acid 4.1 Calcium 9.3 AST 18 ALT 11 Triglycerides 61 Cholesterol 79 LDL Cholesterol, Calc 41 HDL Cholesterol 26 L 25-OH Vitamin D Total 60.1 TSH 1.77 Ur Specific [place] 1.020 Urine Protein Negative Urine Glucose (UA) Negative Urine Blood Negative Microalb/Creat Ratio 9.2 Assessment and Plan Assessment & Plan (1) Coronary artery disease: Code(s): I25.10 - Atherosclerotic heart disease of [place] coronary artery without angina pectoris Qualifiers: Associated angina: without angina Coronary Disease-Associated Artery/Lesion type: [place] artery [place] vs. transplanted heart: [place] heart Qualified Code(s): I25.10 - Atherosclerotic heart disease of [place] coronary artery without angina pectoris Plan: Patient remains asymptomatic from a cardiac standpoint Continue Aspirin 81 mg QD Follow up with cardiology as scheduled (2) Pure hypercholesterolemia: Code(s): E78.00 - Pure hypercholesterolemia, unspecified Plan: Results of his labs done yesterday reviewed and discussed with patient Reinforced low cholesterol diet Continue Simvastatin 40 mg QD Will recheck his labs and fasting lipids in 4 months for follow up (3) Benign essential hypertension: Code(s): I10 - Essential (primary) hypertension Plan: Reinforced low sodium diet - goal is systolic BP of at least 140 mm or less Continue Losartan 100 mg QD, Atenolol 25 mg QD and HCTZ 25 mg QD (4) Diabetes mellitus: Code(s): E11.9 - Type 2 diabetes mellitus without complications Qualifiers: Diabetes mellitus complication status: without complication Diabetes mellitus jail insulin use: without supervisor intermediates use Diabetes mellitus type: type 2 Qualified Code(s): E11.9 - Type 2 diabetes mellitus without complications Plan: HgbA1c remains well-controlled at 6.5% on his labs done yesterday (was at 6.4% a few months ago) - goal is <7.0% Reinforced diabetic diet Continue Metformin 1000 mg BID and Tradjenta 5 mg QD (5) Gout: Code(s): M10.9 - Gout, unspecified Qualifiers: Chronicity: unspecified Gout etiology: idiopathic Gout site: unspecified site Qualified Code(s): M10.00 - Idiopathic gout, unspecified site Plan: Has had no acute gout flares lately; serum uric acid level was again normal on his recent labs Reinforced low purine diet Continue Allopurinol?300 mg QD (6) Vitamin D deficiency: Code(s): E55.9 - Vitamin D deficiency, unspecified Plan: Corrected - continue Vitamin D3 1000 units QD (7) Urinary frequency: Code(s): R35.0 - Frequency of micturition Plan: Most likely due to BPH - PSA level came out normal on his labs done yesterday Discussed again options of Rx to help control his urinary symptoms and/or referral to urology for further evaluation and management - patient states that he will call for Rx or referral when he feels that he needs them or if his symptoms progress Plan Follow up in 4 months Orders: Orders Comprehensive [place]. Panel Fast 4 Months E78.00 - Pure hypercholesterolemia, unspecified Complete Blood Count Auto Diff 4 Months I10 - Essential (primary) hypertension TSH reflex Free T4 4 Months E78.00 - Pure hypercholesterolemia, unspecified Microalbumin, Random (w Creat) 4 Months E11.9 - Type 2 diabetes mellitus without complications Influenza [id number] Immunization Today Z23 - Encounter for immunization Lipid Panel 4 Months E78.00 - Pure hypercholesterolemia, unspecified Hemoglobin A1c 4 Months E11.9 - Type 2 diabetes mellitus without complications UA CC w/rflx Micro + Cult 4 Months R30.0 - Dysuria Vitamin D 25-OH Total 4 Months E55.9 - Vitamin D deficiency, unspecified Vitamin B12 and Folate 4 Months E53.8 - Deficiency of other specified B group vitamins Coding Level of Care Code Est Pt Level 4 (87539) Diagnoses Coronary artery disease involving [place] coronary artery of [place] heart without angina pectoris I25.10 Associated angina: without angina Coronary Disease-Associated Artery/Lesion type: [place] artery [place] vs. transplanted heart: [place] heart Pure hypercholesterolemia E78.00 Benign essential hypertension I10 Type 2 diabetes mellitus without complication, without long-term current use of insulin E11.9 Diabetes mellitus complication status: without complication Diabetes mellitus supervisor intermediates insulin use: without jail use Diabetes mellitus type: type 2 Idiopathic gout, unspecified chronicity, unspecified site M10.00 Chronicity: unspecified Gout etiology: idiopathic Gout site: unspecified site Vitamin D deficiency E55.9 Urinary frequency R35.0
== END 2023-01-30 14:04 | disposition home or self-care (01) ==
PROVIDERS: Visit Provider Internal Medicine
DX: I25.10 Atherosclerotic heart disease of native coronary artery without angina pectoris (principal); E78.00 Pure hypercholesterolemia, unspecified; I10 Essential (primary) hypertension; E11.9 Type 2 diabetes mellitus without complications; M10.00 Idiopathic gout, unspecified site; E55.9 Vitamin D deficiency, unspecified; R35.0 Frequency of micturition; Z23 Encounter for immunization
CPT/HCPCS: 90471; 99214

== ENCOUNTER 2023-06-11 08:40 | Outpatient (REF) | payer MEDICARE, SELFPAY ==
[2023-06-11 11:42] LABS: Appearance Urine Clear; Color Urine Yellow; Glucose Urine UA Negative (Negative); Leukocyte Esterase Urine Negative (Negative); Nitrite Urine Negative (Negative); Urine Blood Negative (Negative); Urine Ketones Negative (Negative); Urine Protein Negative (Neg-Trace)
[2023-06-11 11:48] LABS: MANUAL DIFF FLAG NO
[2023-06-11 12:20] LABS: Estimated Average Glucose 143 mg/dL; Hemoglobin A1c % 6.6 % (<6.0)
[2023-06-11 12:24] LABS: Basophils Percent Auto 0.5 % (0-2); Eosinophils Absolute Auto 0.1 X10*3/uL (0.0-0.4); Hemoglobin 12.8 g/dl (14.0-18.0); Imm Gran Abs Auto 0.03 X10*3/uL (0.00-0.03); Imm Gran Pct Auto 0.5 % (0.0-0.4); Lymphocytes Absolute Auto 1.6 X10*3/uL (1.2-4.9); Lymphocytes Percent Auto 29.2 % (20-40); Mean Corpuscular HGB Conc 33.7 g/dl (31.0-36.0); Mean Corpuscular Hemoglobin 30.4 pg (27.0-33.0); Mean Corpuscular Volume 90.3 fL (80.0-98.0); Mean Platelet Volume 12.6 fL (9.4-12.4); Monocytes Absolute Auto 0.4 X10*3/uL (0.1-1.2); Monocytes Percent Auto 7.6 % (2-11); Neutrophils Absolute Auto 3.3 x10*3/uL (2.0-8.3); Neutrophils Percent Auto 60.2 % (45-73); Platelet Count 134 X10*3/uL (160-400); Red Blood Count 4.21 X10*6/uL (4.60-5.80); Red Cell Distribution Width 13.2 % (11.0-16.0); White Blood Count 5.5 X10*3/uL (4.8-10.8)
[2023-06-11 12:37] LABS: Creatinine Urine 40.92 mg/dL; Microalbum/Creatinine Ratio Ur 14.6 ug/mg cr (<30)
[2023-06-11 12:39] LABS: Alanine Aminotransferase 15 U/L (0-40); Albumin Level 4.1 g/dL (3.5-5.0); Alkaline Phosphatase 65 U/L (39-117); Anion Gap 13 (12-20); Aspartate Amino Transferase 22 U/L (5-37); Bilirubin Total 0.5 mg/dL (0.0-1.0); Blood Urea Nitrogen 21 mg/dL (9-16); Calcium 9.3 mg/dL (8.4-10.2); Carbon Dioxide 30 mmol/L (22-29); Chloride 102 mmol/L (96-108); Cholesterol 102 mg/dL (<200); Estimated Glomerular Filt Rate > 60; Glucose Fasting 134 mg/dL (60-99); HDL Cholesterol 33 mg/dL (>40); LDL Cholesterol Calculated 55 mg/dL (<100); Potassium 3.5 mmol/L (3.3-5.1); Sodium 141 mmol/L (135-145); Total Protein 6.9 g/dL (6.5-8.0); Triglycerides 72 mg/dL (<150)
[2023-06-11 12:51] LABS: Folate 14.7 ng/mL (> or = 4.0); Vitamin B12 719 pg/mL (200-900)
[2023-06-11 13:02] LABS: TSH reflex Free T4 2.69 uIU/mL (0.32-4.0); Vitamin D 25-OH Total 53.5 ng/mL (>30)
== END 2023-06-11 08:41 | disposition home or self-care (01) ==
LOC: HO.HMGCLDS 08:40
PROVIDERS: PCP Internal Medicine; Visit Provider Internal Medicine
DX: E78.00 Pure hypercholesterolemia, unspecified (principal); I10 Essential (primary) hypertension; E11.9 Type 2 diabetes mellitus without complications; E53.8 Deficiency of other specified B group vitamins; R30.0 Dysuria; E55.9 Vitamin D deficiency, unspecified
CPT/HCPCS: 36415; 80053; 80061; 81003; 82043; 82306; 82570; 82607; 82746; 83036; 84443; 85025

== ENCOUNTER 2023-06-12 13:19 | Outpatient (AMB) | payer MEDICARE, SELFPAY ==
[2023-06-12 13:20] VITALS: BP 138/78; PULSE 65; BMI 24.4
--- NOTE | 2023-06-12 13:20 | A.OFFPC_ITS ---
Vital Signs 06/12/23 13:20 Height 5 ft 7 in Weight 156 lb 2 oz BMI 24.4 BP 138/78 Blood Pressure Location Lt brachial Position Sitting Pulse 65 Pulse Source Pulse Oximeter Oxygen Delivery Method Room Air Intake Visit Reasons: 4 month f/u Lead Qa Analyst Required: No Accompanied by: Self / Same As Patient Allergies No Known Allergies Allergy (Verified 06/12/23 13:43) Medication List - Last Reconciled 06/12/23 by Rafael Sanchez MD allopurinol 300 mg PO DAILY ascorbate calcium (vitamin C) 500 mg PO DAILY aspirin (Adult Aspirin Regimen) 81 mg PO DAILY atenolol 25 mg PO DAILY blood sugar diagnostic (FreeStyle Lite Strips) 1 strip miscellaneous TID cholecalciferol (vitamin D3) 25 mcg PO DAILY hydrochlorothiazide 25 mg PO DAILY Lactobacillus rhamnosus GG (Culturelle) 15,000 mmu cells PO DAILY lancets (FreeStyle Lancets) 1 gauge topical TID losartan 100 mg PO DAILY metformin 1,000 mg PO BID omega-3 fatty acids-fish oil 360-1,200 mg (Fish Oil) 1 cap PO DAILY simvastatin 40 mg PO QPM Tradjenta (linagliptin) 5 mg PO DAILY 90 days NS Tobacco use date assessed: 06/12/23 Fall risk assessment: No Falls in past year Last assessed Fall Risk: 06/12/23 Dental Screening Dental Screen Date: 06/12/23 Did you have a dental visit in the last 12 months?: Yes Did you have a dental problem in the last 6 months where you did not have access to dental care?: No Was dental information given to patient?: Patient has dentist HPI 4 month f/u HPI Details Patient comes in today for his follow up visit States that he feels okay He denies any headaches or dizziness Denies any chest pains, no SOB No nausea/vomiting, no abdominal pain No change in bowel habits noted Had his follow up labs done yesterday - to discuss his results ON LICENSE OF [facility] Medical History COVID-19 vaccine series completed History of COVID-19 History of postoperative nausea Left inguinal hernia Left inguinal hernia Vitamin D deficiency Gout Pure hypercholesterolemia Benign essential hypertension Diabetes mellitus Coronary artery disease Surgical History S/P left inguinal hernia repair (~10/15/20) Hx of colonoscopy (~04/2011) History of heart bypass surgery History of appendectomy Family History Father CVD (cardiovascular disease) Mother Chronic mental illness Family/Other Liver cancer Other Mental health problem Social History Housing: House Alcohol intake: current Alcohol intake frequency: holidays/special occasions only Patient Tobacco Use Status: Never used Tobacco e-Cigarette/Vaping Use: Never Used Second Hand Smoke Exposure: Yes service: Yes Current occupational status: retired Cognitive needs: No Hearing needs: No Vision needs: Yes Questionnaire PHQ-9 Over the last 2 weeks, how often have you been bothered by any of the following problems? 1. Little interest or pleasure in doing things: not at all 2. Feeling down, depressed, or hopeless: not at all 3. Trouble falling or staying asleep, or sleeping too much: not at all 4. Feeling tired or having little energy: not at all 5. Poor appetite or overeating: not at all 6. Feeling bad about yourself - or that you are a failure or have let yourself or your family down: not at all 7. Trouble concentrating on things, such as reading the newspaper or watching television: not at all 8. Moving or speaking so slowly that other people could have noticed. Or the op posite - being so fidgety or restless that you have been moving around a lot more than usual: not at all 9. Thoughts that you would be better off or of hurting yourself in some way: not at all Total score: 0 Depression Screening Interpretation: Negative Depression Screening Done: Yes 45539 - PHQ-9 Billing: Yes Source: Developed by Drs. Jonatan Arenas, Rowena Grewal, Carlos Saldivar and colleagues, with an educational luh from [employer]. Thrive Questionnaire Date Thrive assessed: 06/12/23 I am a: Patient What is your living situation today?: I have a steady place to live Within the past 12 months, did the food you bought not last and you didn't have the money to get more?: Never true Within the past 12 months, did you worry whether your food would run out before you got money to buy more?: Never true Do you have trouble paying for medicines?: No Do you have trouble getting transportation to medical appointments?: No Do you have trouble paying your heating and electricity bill?: No Do you have trouble taking care of your child, family member or friend?: No Do you have trouble with day-to-day activities such as bathing, preparing meals, shopping, managing finances, etc.?: No Are you currently unemployed and looking for a job?: No Are you interested in more education?: No Please select the resources that you would like help with: None Currently or been in a relationship where the following occur: no concerns reported THRIVE Score: 0 AUDIT C Alcohol Use Questionnaire (AUDIT-C) 1. How often do you have a drink containing alcohol?: Monthly or less 2. How many drinks containing alcohol do you have on a typical day when you are drinking?: 1 or 2 3. How often do you have six or more drinks on one occasion?: Never Total Score: 1 Score Reviewed/Action Taken: Yes RAIMUNDO-7 AMB Questionnaire RAIMUNDO-7 Date RAIMUNDO - 7 assessed: 06/12/23 Feeling nervous, anxious, or on edge: 0 = Not at all Not being able to stop or control worryin = Not at all Worrying too much about different things: 0 = Not at all Trouble relaxin = Not at all Being so restless that it is hard to sit still: 0 = Not at all Becoming easily annoyed or irritable: 0 = Not at all Feeling afraid as if something awful might happen: 0 = Not at all Total RAIMUNDO-7 score (0-4 normal; 5-9 mild; 10-14 moderate; 15-21 severe): 0 Source: Developed by Drs. Jonatan Arenas, Rowena Grewal, Carlos Saldivar and colleagues, with an educational luh from [employer]. Review of Systems Const Denies chills, Denies fatigue, Denies fever(s) and Denies headache(s) ENT Denies dysphagia, Denies dizziness, Denies otalgia, Denies headache(s), Denies neck pain, Denies odynophagia and Denies sore throat Card Denies chest pain, Denies palpitations and Denies dyspnea Resp Denies cough and Denies dyspnea GI Denies abdominal pain, Denies constipation, Denies dysphagia, Denies heartburn, Denies diarrhea, Denies nausea, Denies odynophagia and Denies vomiting Denies dysuria, Denies nocturia and Denies urinary frequency Musc Denies back pain and Denies neck pain Neuro Denies dizziness and Denies headache(s) Endo Denies fatigue and Denies palpitations Physical exam (Primary Care) Vital Signs: Last Vital Signs Pulse 65 06/12/23 13:20 BP 138/78 06/12/23 13:20 Oxygen Delivery Method Room Air 06/12/23 13:20 BMI result Body Mass Index 24.4 Tobacco/Smoking Status: Tobacco use Status Tobacco use date assessed 06/12/23 06/12/23 13:22 Patient Tobacco Use Status Never used Tobacco 06/12/23 13:22 e-Cigarette/Vaping Use Never Used 06/12/23 13:22 PHQ-9: PHQ-9 Score PHQ-9: Total score 0 06/12/23 13:54 Depression Screening Interpretation: Negative Thrive Assessment: Date of Thrive Assessment Date Thrive assessed 06/12/23 06/12/23 13:22 Currently or been in a relationship where the following occur: no concerns reported Const General: no acute distress and alert HENMT Ears: TM's normal bilaterally and EAC's normal Throat: Yes posterior oropharynx normal and Yes tonsils normal (no TP congestion) Neck Neck: Yes no lymphadenopathy and Yes supple Resp Auscultation: clear to auscultation bilaterally, no rales and no wheezes Cardio Rate: regular rate Rhythm: regular rhythm Heart sounds: no murmurs GI Palpation (GI): Soft to palpation and nontender Auscultation: normal bowel sounds General: Yes no CVA tenderness Back/Spine/Pelvis Back: no CVA tenderness Thoracic/Lumbar Spine: No lumbar spinal tenderness Skin Rashes: no rashes Extrem General: Yes no clubbing, cyanosis or edema Results Reviewed Results Reviewed: Laboratory Tests 06/11/23 08:46 WBC 5.5 Hgb 12.8 L Hct 38.0 L Plt Count 134 L Sodium 141 Potassium 3.5 Creatinine 0.83 Estimated GFR > 60 Fasting Glucose 134 H Hemoglobin A1c % 6.6 H Calcium 9.3 AST 22 ALT 15 Triglycerides 72 Cholesterol 102 LDL Cholesterol, Calc 55 HDL Cholesterol 33 L Vitamin B12 719 25-OH Vitamin D Total 53.5 TSH 2.69 Ur Specific [place] 1.010 Urine Protein Negative Urine Glucose (UA) Negative Urine Blood Negative Urine Nitrite Negative Ur Leukocyte Esterase Negative Microalb/Creat Ratio 14.6 Assessment and Plan Assessment & Plan (1) Coronary artery disease: Code(s): I25.10 - Atherosclerotic heart disease of [place] coronary artery without angina pectoris Qualifiers: Associated angina: without angina Coronary Disease-Associated Artery/Lesion type: [place] artery [place] vs. transplanted heart: [place] heart Qualified Code(s): I25.10 - Atherosclerotic heart disease of [place] coronary artery without angina pectoris Plan: Patient remains asymptomatic from a cardiac standpoint Continue Aspirin 81 mg QD Follow up with cardiology as scheduled (2) Pure hypercholesterolemia: Code(s): E78.00 - Pure hypercholesterolemia, unspecified Plan: Results of his labs done yesterday reviewed and discussed with patient Reinforced low cholesterol diet Continue Simvastatin 40 mg QD Will recheck his labs and fasting lipids in 4 months for follow up (3) Benign essential hypertension: Code(s): I10 - Essential (primary) hypertension Plan: Reinforced low sodium diet - goal is systolic BP of at least 140 mm or less Continue Losartan 100 mg QD, Atenolol 25 mg QD and HCTZ 25 mg QD (4) Diabetes mellitus: Code(s): E11.9 - Type 2 diabetes mellitus without complications Qualifiers: Diabetes mellitus complication status: without complication Diabetes mellitus assisted insulin use: without petroleum terminal plant operator use Diabetes mellitus type: type 2 Qualified Code(s): E11.9 - Type 2 diabetes mellitus without complications Plan: His HgbA1c remains well-controlled at 6.6% on his labs done yesterday (was at 6.5% a few months ago) - goal is <7.0% Reinforced diabetic diet Continue Metformin 1000 mg BID and Tradjenta 5 mg QD (5) Gout: Code(s): M10.9 - Gout, unspecified Qualifiers: Chronicity: unspecified Gout etiology: idiopathic Gout site: unspecified site Qualified Code(s): M10.00 - Idiopathic gout, unspecified site Plan: Patient has had no acute gout flares lately; serum uric acid level was again normal on his recent labs Reinforced low purine diet Continue Allopurinol?300 mg QD (6) Vitamin D deficiency: Code(s): E55.9 - Vitamin D deficiency, unspecified Plan: Corrected - continue Vitamin D3 1000 units QD (7) Urinary frequency: Code(s): R35.0 - Frequency of micturition Plan: Most likely due to BPH - PSA level came out normal on his labs done a few months ago Discussed again options of Rx to help control his urinary symptoms and/or referral to urology for further evaluation and management - patient states that he will call for Rx or referral when he feels that he needs them or if his symptoms progress Plan Follow up in 4 months Orders: Orders Comprehensive [place]. Panel Fast 4 Months E78.00 - Pure hypercholesterolemia, unspecified Lipid Panel 4 Months E78.00 - Pure hypercholesterolemia, unspecified Microalbumin, Random (w Creat) 4 Months E11.9 - Type 2 diabetes mellitus without complications Hemoglobin A1c 4 Months E11.9 - Type 2 diabetes mellitus without complications Vitamin D 25-OH Total 4 Months E55.9 - Vitamin D deficiency, unspecified Uric Acid 4 Months M10.9 - Gout, unspecified Complete Blood Count Auto Diff 4 Months D64.9 - Anemia, unspecified TSH reflex Free T4 4 Months E78.00 - Pure hypercholesterolemia, unspecified UA CC w/rflx Micro + Cult 4 Months R30.0 - Dysuria Vitamin B12 and Folate 4 Months E53.8 - Deficiency of other specified B group vitamins Coding Level of Care Code Est Pt Level 4 (25978) Diagnoses Coronary artery disease involving [place] coronary artery of [place] heart without angina pectoris I25.10 Associated angina: without angina Coronary Disease-Associated Artery/Lesion type: [place] artery [place] vs. transplanted heart: [place] heart Pure hypercholesterolemia E78.00 Benign essential hypertension I10 Type 2 diabetes mellitus without complication, without long-term current use of insulin E11.9 Diabetes mellitus complication status: without complication Diabetes mellitus assisted insulin use: without assisted use Diabetes mellitus type: type 2 Idiopathic gout, unspecified chronicity, unspecified site M10.00 Chronicity: unspecified Gout etiology: idiopathic Gout site: unspecified site Vitamin D deficiency E55.9 Urinary frequency R35.0
== END 2023-06-12 14:00 | disposition home or self-care (01) ==
PROVIDERS: PCP Internal Medicine; Visit Provider Internal Medicine
DX: I25.10 Atherosclerotic heart disease of native coronary artery without angina pectoris (principal); E78.00 Pure hypercholesterolemia, unspecified; I10 Essential (primary) hypertension; E11.9 Type 2 diabetes mellitus without complications; M10.00 Idiopathic gout, unspecified site; E55.9 Vitamin D deficiency, unspecified; R35.0 Frequency of micturition
CPT/HCPCS: 99214

== ENCOUNTER 2023-10-11 08:08 | Outpatient (REF) | payer MEDICARE, SELFPAY ==
[2023-10-11 10:19] LABS: MANUAL DIFF FLAG NO
[2023-10-11 10:40] LABS: Basophils Percent Auto 0.3 % (0-2); Eosinophils Absolute Auto 0.2 X10*3/uL (0.0-0.4); Eosinophils Percent Auto 3.2 % (0-4); Hemoglobin 13.2 g/dl (14.0-18.0); Imm Gran Abs Auto 0.01 X10*3/uL (0.00-0.03); Imm Gran Pct Auto 0.2 % (0.0-0.4); Lymphocytes Absolute Auto 1.8 X10*3/uL (1.2-4.9); Lymphocytes Percent Auto 30.2 % (20-40); Mean Corpuscular Hemoglobin 30.4 pg (27.0-33.0); Mean Corpuscular Volume 92.2 fL (80.0-98.0); Mean Platelet Volume 12.4 fL (9.4-12.4); Monocytes Absolute Auto 0.4 X10*3/uL (0.1-1.2); Monocytes Percent Auto 7.1 % (2-11); Neutrophils Absolute Auto 3.5 x10*3/uL (2.0-8.3); Platelet Count 133 X10*3/uL (160-400); Red Blood Count 4.34 X10*6/uL (4.60-5.80); Red Cell Distribution Width 13.3 % (11.0-16.0); White Blood Count 5.9 X10*3/uL (4.8-10.8)
[2023-10-11 10:48] LABS: Estimated Average Glucose 143 mg/dL; Hemoglobin A1c % 6.6 % (<6.0)
[2023-10-11 10:56] LABS: Alanine Aminotransferase 16 U/L (0-40); Albumin Level 4.3 g/dL (3.5-5.0); Alkaline Phosphatase 69 U/L (39-117); Anion Gap 13 (12-20); Aspartate Amino Transferase 23 U/L (5-37); Bilirubin Total 0.6 mg/dL (0.0-1.0); Blood Urea Nitrogen 23 mg/dL (9-16); Calcium 9.4 mg/dL (8.4-10.2); Carbon Dioxide 30 mmol/L (22-29); Chloride 102 mmol/L (96-108); Cholesterol 96 mg/dL (<200); Estimated Glomerular Filt Rate > 60; Glucose Fasting 117 mg/dL (60-99); HDL Cholesterol 30 mg/dL (>40); LDL Cholesterol Calculated 54 mg/dL (<100); Potassium 3.9 mmol/L (3.3-5.1); Sodium 141 mmol/L (135-145); Total Protein 7.1 g/dL (6.5-8.0); Triglycerides 63 mg/dL (<150)
[2023-10-11 11:02] LABS: Appearance Urine Clear; Color Urine Yellow; Glucose Urine UA Negative (Negative); Leukocyte Esterase Urine Negative (Negative); Nitrite Urine Negative (Negative); PH 5.5 (5.0-9.0); Urine Blood Negative (Negative); Urine Ketones Negative (Negative); Urine Protein Negative (Neg-Trace)
[2023-10-11 11:03] LABS: Creatinine Urine 89.54 mg/dL; Microalbum/Creatinine Ratio Ur 8.9 ug/mg cr (<30)
[2023-10-11 11:19] LABS: Uric Acid 3.4 mg/dL (3.4-7.0)
[2023-10-11 11:20] LABS: Folate 13.9 ng/mL (> or = 4.0); Vitamin B12 583 pg/mL (200-900)
[2023-10-11 11:22] LABS: TSH reflex Free T4 2.41 uIU/mL (0.32-4.0); Vitamin D 25-OH Total 58.3 ng/mL (>30)
== END 2023-10-11 08:09 | disposition home or self-care (01) ==
LOC: HO.HMGCLDS 08:08
PROVIDERS: PCP Internal Medicine; Visit Provider Internal Medicine
DX: E78.00 Pure hypercholesterolemia, unspecified (principal); E11.9 Type 2 diabetes mellitus without complications; D64.9 Anemia, unspecified; R30.0 Dysuria; E55.9 Vitamin D deficiency, unspecified; M10.9 Gout, unspecified; E53.8 Deficiency of other specified B group vitamins
CPT/HCPCS: 36415; 80053; 80061; 81003; 82043; 82306; 82570; 82607; 82746; 83036; 84443; 84550; 85025

== ENCOUNTER 2023-10-12 14:11 | Outpatient (AMB) | payer MEDICARE, SELFPAY ==
--- NOTE | 2023-10-12 14:16 | MHC.PC.OV ---
Vital Signs 10/12/23 14:17 10/12/23 15:10 Height 5 ft 7 in Weight 154 lb 2 oz BMI 24.1 BP 148/76 H 136/68 Blood Pressure Location Lt brachial Lt brachial Position Sitting Sitting Pulse 65 Pulse Source Pulse Oximeter Pulse Oximetry (%) 9 L Oxygen Delivery Method Room Air Intake Visit Reasons: HTN, hyperlipidemia, DM Psychiatric Specialist Required: No Accompanied by: Self / Same As Patient Allergies No Known Allergies Allergy (Verified 10/12/23 15:12) Medication List - Last Reconciled 10/12/23 by Rafael Sanchez MD allopurinol 300 mg PO DAILY ascorbate calcium (vitamin C) 500 mg PO DAILY aspirin (Adult Aspirin Regimen) 81 mg PO DAILY atenolol 25 mg PO DAILY blood sugar diagnostic (FreeStyle Lite Strips) 1 strip miscellaneous TID cholecalciferol (vitamin D3) 25 mcg PO DAILY hydrochlorothiazide 25 mg PO DAILY Lactobacillus rhamnosus GG (Culturelle) 15,000 mmu cells PO DAILY lancets (FreeStyle Lancets) 1 gauge topical TID losartan 100 mg PO DAILY metformin 1,000 mg PO BID omega-3 fatty acids-fish oil 360-1,200 mg (Fish Oil) 1 cap PO DAILY simvastatin 40 mg PO QPM Tradjenta (linagliptin) 5 mg PO DAILY 90 days NS Tobacco use date assessed: 06/12/23 Fall risk assessment: No Falls in past year Last assessed Fall Risk: 10/12/23 Dental Screening Dental Screen Date: 06/12/23 HPI HTN, hyperlipidemia, DM HPI Details Patient comes in today for his follow up visit States that he feels okay He denies any headaches or dizziness Denies any chest pains, no SOB No nausea/vomiting, no abdominal pain No change in bowel habits noted Had his follow up labs done yesterday - to discuss his results [facility] Medical History COVID-19 vaccine series completed History of COVID-19 History of postoperative nausea Left inguinal hernia Left inguinal hernia Vitamin D deficiency Gout Pure hypercholesterolemia Benign essential hypertension Diabetes mellitus Coronary artery disease Surgical History S/P left inguinal hernia repair (~10/15/20) Hx of colonoscopy (~04/2011) History of heart bypass surgery History of appendectomy Family History Father CVD (cardiovascular disease) Mother Chronic mental illness Family/Other Liver cancer Other Mental health problem Social History Housing: House Alcohol intake: current Alcohol intake frequency: holidays/special occasions only Patient Tobacco Use Status: Never used Tobacco e-Cigarette/Vaping Use: Never Used Second Hand Smoke Exposure: Yes service: Yes Current occupational status: retired Cognitive needs: No Hearing needs: No Vision needs: Yes Questionnaire Thrive Questionnaire Date Thrive assessed: 06/12/23 RAIMUNDO-7 AMB Questionnaire RAIMUNDO-7 Date RAIMUNDO - 7 assessed: 06/12/23 Source: Developed by Drs. Jonatan Arenas, Rowena Grewal, Carlos Saldivar and colleagues, with an educational luh from [employer]. Review of Systems Const Denies chills, Denies fatigue, Denies fever(s) and Denies headache(s) ENT Denies dysphagia, Denies dizziness, Denies otalgia, Denies headache(s), Denies neck pain, Denies odynophagia and Denies sore throat Card Denies chest pain, Denies palpitations and Denies dyspnea Resp Denies cough and Denies dyspnea GI Denies abdominal pain, Denies constipation, Denies dysphagia, Denies heartburn, Denies diarrhea, Denies nausea, Denies odynophagia and Denies vomiting Denies dysuria, Denies nocturia and Denies urinary frequency Musc Denies back pain and Denies neck pain Skin/Breast Denies rash Neuro Denies dizziness and Denies headache(s) Endo Denies fatigue and Denies palpitations Physical exam (Primary Care) Vital Signs: Last Vital Signs Pulse 65 10/12/23 14:17 BP 148/76 H 10/12/23 14:17 Pulse Ox 9 L 10/12/23 14:17 Oxygen Delivery Method Room Air 10/12/23 14:17 BMI result Body Mass Index 24.1 Tobacco/Smoking Status: Tobacco use Status Tobacco use date assessed 06/12/23 10/12/23 14:17 Patient Tobacco Use Status Never used Tobacco 10/12/23 14:17 e-Cigarette/Vaping Use Never Used 10/12/23 14:17 Thrive Assessment: Date of Thrive Assessment Date Thrive assessed 06/12/23 10/12/23 14:17 Const General: no acute distress and alert HENMT Ears: TM's normal bilaterally and EAC's normal Throat: Yes posterior oropharynx normal and Yes tonsils normal (no TP congestion) Neck Neck: Yes no lymphadenopathy and Yes supple Thyroid: Thyroid normal Resp Auscultation: clear to auscultation bilaterally, no rales and no wheezes Cardio Rate: regular rate Rhythm: regular rhythm Heart sounds: no murmurs GI Palpation (GI): Soft to palpation and nontender Auscultation: normal bowel sounds General: Yes no CVA tenderness Back/Spine/Pelvis Back: no CVA tenderness Thoracic/Lumbar Spine: No lumbar spinal tenderness Skin Rashes: no rashes Extrem General: Yes no clubbing, cyanosis or edema Results Reviewed Results Reviewed: Laboratory Tests 10/11/23 10/11/23 07:51 08:14 WBC 5.9 Hgb 13.2 L Hct 40.0 L Plt Count 133 L Sodium 141 Potassium 3.9 Creatinine 0.85 Estimated GFR > 60 Fasting Glucose 117 H Hemoglobin A1c % 6.6 H Uric Acid 3.4 Calcium 9.4 AST 23 ALT 16 Triglycerides 63 Cholesterol 96 LDL Cholesterol, Calc 54 HDL Cholesterol 30 L Vitamin B12 583 25-OH Vitamin D Total 58.3 TSH 2.41 Ur Specific [place] 1.020 Urine Protein Negative Urine Glucose (UA) Negative Urine Blood Negative Urine Nitrite Negative Ur Leukocyte Esterase Negative Microalb/Creat Ratio 8.9 Assessment and Plan Assessment & Plan (1) Coronary artery disease: Code(s): I25.10 - Atherosclerotic heart disease of [place] coronary artery without angina pectoris Qualifiers: Coronary Disease-Associated Artery/Lesion type: [place] artery [place] vs. transplanted heart: [place] heart Associated angina: without angina Qualified Code(s): I25.10 - Atherosclerotic heart disease of [place] coronary artery without angina pectoris Plan: Patient remains asymptomatic from a cardiac standpoint Continue Aspirin 81 mg QD Follow up with cardiology as scheduled (2) Pure hypercholesterolemia: Code(s): E78.00 - Pure hypercholesterolemia, unspecified Plan: Results of his labs done yesterday reviewed and discussed with patient - his cholesterol levels remain well-controlled on his current Rx Reinforced low cholesterol diet Continue Simvastatin 40 mg QD Will recheck his labs and fasting lipids in 4 months for follow up (3) Diabetes mellitus: Code(s): E11.9 - Type 2 diabetes mellitus without complications Qualifiers: Diabetes mellitus type: type 2 Diabetes mellitus long term care pharmacist insulin use: without senior living use Diabetes mellitus complication status: without complication Qualified Code(s): E11.9 - Type 2 diabetes mellitus without complications Plan: His HgbA1c remains well-controlled and unchanged from previous at 6.6% on his labs done yesterday (was also at 6.6% a few months ago) - goal is at least <7.0% Reinforced diabetic diet Continue Metformin 1000 mg BID and Tradjenta 5 mg QD (4) Benign essential hypertension: Code(s): I10 - Essential (primary) hypertension Plan: Reinforced low sodium diet - goal is systolic BP of at least 140 mm or less Continue Losartan 100 mg QD, Atenolol 25 mg QD and HCTZ 25 mg QD (5) Gout: Code(s): M10.9 - Gout, unspecified Qualifiers: Gout site: unspecified site Gout etiology: idiopathic Chronicity: unspecified Qualified Code(s): M10.00 - Idiopathic gout, unspecified site Plan: Patient has had no acute gout flares lately; serum uric acid level was again normal on his recent labs Reinforced low purine diet Continue Allopurinol?300 mg QD (6) Vitamin D deficiency: Code(s): E55.9 - Vitamin D deficiency, unspecified Plan: Corrected - continue Vitamin D3 1000 units QD (7) Urinary frequency: Code(s): R35.0 - Frequency of micturition Plan: Most likely due to BPH - PSA level came out normal on his labs done a few months ago Discussed again options of Rx to help control his urinary symptoms and/or referral to urology for further evaluation and management - patient states that he will call for Rx or referral when he feels that he needs them or if his symptoms progress Plan Follow up in 4 months Orders: Orders Complete Blood Count Auto Diff 4 Months D64.9 - Anemia, unspecified Comprehensive [place]. Panel Fast 4 Months E78.00 - Pure hypercholesterolemia, unspecified UA CC w/rflx Micro + Cult 4 Months R30.0 - Dysuria Hemoglobin A1c 4 Months E11.9 - Type 2 diabetes mellitus without complications Lipid Panel 4 Months E78.00 - Pure hypercholesterolemia, unspecified TSH reflex Free T4 4 Months E78.00 - Pure hypercholesterolemia, unspecified Microalbumin, Random (w Creat) 4 Months E11.9 - Type 2 diabetes mellitus without complications Uric Acid 4 Months M10.9 - Gout, unspecified Coding Level of Care Code Est Pt Level 4 (20289) Complex EM visit Add On G2211 Diagnoses Coronary artery disease involving [place] coronary artery of [place] heart without angina pectoris I25.10 Coronary Disease-Associated Artery/Lesion type: [place] artery [place] vs. transplanted heart: [place] heart Associated angina: without angina Pure hypercholesterolemia E78.00 Type 2 diabetes mellitus without complication, without long-term current use of insulin E11.9 Diabetes mellitus type: type 2 Diabetes mellitus senior living insulin use: without long term care pharmacist use Diabetes mellitus complication status: without complication Benign essential hypertension I10 Idiopathic gout, unspecified chronicity, unspecified site M10.00 Gout site: unspecified site Gout etiology: idiopathic Chronicity: unspecified Vitamin D deficiency E55.9 Urinary frequency R35.0
[2023-10-12 14:17] VITALS: BP 148/76; PULSE 65; O2SAT 9; BMI 24.1
[2023-10-12 15:10] VITALS: BP 136/68
== END 2023-10-12 15:23 | disposition home or self-care (01) ==
PROVIDERS: PCP Internal Medicine; Visit Provider Internal Medicine
DX: I25.10 Atherosclerotic heart disease of native coronary artery without angina pectoris (principal); E78.00 Pure hypercholesterolemia, unspecified; E11.9 Type 2 diabetes mellitus without complications; I10 Essential (primary) hypertension; M10.00 Idiopathic gout, unspecified site; E55.9 Vitamin D deficiency, unspecified; R35.0 Frequency of micturition
CPT/HCPCS: 99214; G2211

== ENCOUNTER 2024-02-11 08:18 | Outpatient (REF) | payer MEDICARE, SELFPAY ==
[2024-02-11 10:04] LABS: MANUAL DIFF FLAG NO
[2024-02-11 10:12] LABS: Basophils Percent Auto 0.3 % (0-2); Eosinophils Absolute Auto 0.2 X10*3/uL (0.0-0.4); Hematocrit 38.2 % (42.0-52.0); Hemoglobin 12.7 g/dl (14.0-18.0); Imm Gran Abs Auto 0.02 X10*3/uL (0.00-0.03); Imm Gran Pct Auto 0.3 % (0.0-0.4); Lymphocytes Absolute Auto 1.8 X10*3/uL (1.2-4.9); Lymphocytes Percent Auto 27.6 % (20-40); Mean Corpuscular HGB Conc 33.2 g/dl (31.0-36.0); Mean Corpuscular Hemoglobin 30.4 pg (27.0-33.0); Mean Corpuscular Volume 91.4 fL (80.0-98.0); Mean Platelet Volume 11.7 fL (9.4-12.4); Monocytes Absolute Auto 0.4 X10*3/uL (0.1-1.2); Monocytes Percent Auto 6.4 % (2-11); Neutrophils Percent Auto 62.4 % (45-73); Platelet Count 149 X10*3/uL (160-400); Red Blood Count 4.18 X10*6/uL (4.60-5.80); Red Cell Distribution Width 13.4 % (11.0-16.0); White Blood Count 6.4 X10*3/uL (4.8-10.8)
[2024-02-11 10:26] LABS: Estimated Average Glucose 143 mg/dL; Hemoglobin A1C 153.4288 umol/L; Hemoglobin A1c % 6.6 % (<6.0); Total Hemoglobin (HGBA1C) 3147.1245 umol/L
[2024-02-11 10:39] LABS: Appearance Urine Clear; Color Urine Yellow; Glucose Urine UA Negative (Negative); Leukocyte Esterase Urine Negative (Negative); Nitrite Urine Negative (Negative); PH 5.5 (5.0-9.0); Specific Gravity - Urine 1.015 (1.005-1.025); Urine Blood Negative (Negative); Urine Ketones Negative (Negative); Urine Protein Negative (Neg-Trace)
[2024-02-11 10:45] LABS: Alanine Aminotransferase 14 U/L (0-40); Albumin Level 4.2 g/dL (3.5-5.0); Alkaline Phosphatase 68 U/L (39-117); Anion Gap 13 (12-20); Aspartate Amino Transferase 24 U/L (5-37); Bilirubin Total 0.7 mg/dL (0.0-1.0); Blood Urea Nitrogen 21 mg/dL (9-16); Calcium 9.2 mg/dL (8.4-10.2); Carbon Dioxide 30 mmol/L (22-29); Chloride 102 mmol/L (96-108); Cholesterol 93 mg/dL (<200); Estimated Glomerular Filt Rate > 60; Glucose Fasting 116 mg/dL (60-99); HDL Cholesterol 27 mg/dL (>40); LDL Cholesterol Calculated 56 mg/dL (<100); Potassium 3.4 mmol/L (3.3-5.1); Sodium 142 mmol/L (135-145); Total Protein 6.8 g/dL (6.5-8.0); Triglycerides 52 mg/dL (<150); Uric Acid 3.4 mg/dL (3.4-7.0)
[2024-02-11 10:51] LABS: Creatinine Urine 94.38 mg/dL; Microalbum/Creatinine Ratio Ur 7.4 ug/mg cr (<30)
[2024-02-11 10:52] LABS: TSH reflex Free T4 2.39 uIU/mL (0.32-4.0)
== END 2024-02-11 08:19 | disposition home or self-care (01) ==
LOC: HO.HMGCLDS 08:18
PROVIDERS: PCP Internal Medicine; Visit Provider Internal Medicine
DX: D64.9 Anemia, unspecified (principal); E78.00 Pure hypercholesterolemia, unspecified; E11.9 Type 2 diabetes mellitus without complications; R30.0 Dysuria; M10.9 Gout, unspecified
CPT/HCPCS: 36415; 80053; 80061; 81003; 82043; 82570; 83036; 84443; 84550; 85025

== ENCOUNTER 2024-02-12 12:35 | Outpatient (AMB) | payer MEDICARE, SELFPAY ==
[2024-02-12 12:39] VITALS: BP 130/82; PULSE 68; O2SAT 99; BMI 23.8
--- NOTE | 2024-02-12 12:39 | A.OFFPC_ITS ---
Vital Signs 02/12/24 12:39 Height 5 ft 7 in Weight 152 lb 4 oz BMI 23.8 BP 130/82 Blood Pressure Location Lt brachial Position Sitting Pulse 68 Pulse Source Pulse Oximeter Pulse Oximetry (%) 99 Oxygen Delivery Method Room Air Intake Visit Reasons: [facility] f/u Human Resources Operations Specialist Required: No Accompanied by: Self / Same As Patient Allergies No Known Allergies Allergy (Verified 02/12/24 12:57) Medication List - Last Reconciled 02/12/24 by Rafael Sanchez MD allopurinol 300 mg PO DAILY ascorbate calcium (vitamin C) 500 mg PO DAILY aspirin (Adult Aspirin Regimen) 81 mg PO DAILY atenolol 25 mg PO DAILY blood sugar diagnostic (FreeStyle Lite Strips) 1 strip miscellaneous TID cholecalciferol (vitamin D3) 25 mcg PO DAILY hydrochlorothiazide 25 mg PO DAILY Lactobacillus rhamnosus GG (Culturelle) 15,000 mmu cells PO DAILY lancets (FreeStyle Lancets) 1 gauge topical TID losartan 100 mg PO DAILY metformin 1,000 mg PO BID omega-3 fatty acids-fish oil 360-1,200 mg (Fish Oil) 1 cap PO DAILY simvastatin 40 mg PO QPM Tradjenta (linagliptin) 5 mg PO DAILY 90 days NS Tobacco use date assessed: 02/12/24 Fall risk assessment: No Falls in past year Last assessed Fall Risk: 02/12/24 Dental Screening Dental Screen Date: 02/12/24 Did you have a dental visit in the last 12 months?: Yes Did you have a dental problem in the last 6 months where you did not have access to dental care?: No Was dental information given to patient?: Patient has dentist HPI [facility] f/u HPI Details Patient comes in today for his follow up visit States that he feels okay He denies any headaches or dizziness Denies any chest pains, no SOB No nausea/vomiting, no abdominal pain No change in bowel habits noted He had his follow up labs done yesterday - to discuss his results [facility] Medical History COVID-19 vaccine series completed History of COVID-19 History of postoperative nausea Left inguinal hernia Left inguinal hernia Vitamin D deficiency Gout Pure hypercholesterolemia Benign essential hypertension Diabetes mellitus Coronary artery disease Surgical History S/P left inguinal hernia repair (~10/15/20) Hx of colonoscopy (~04/2011) History of heart bypass surgery History of appendectomy Family History Father CVD (cardiovascular disease) Mother Chronic mental illness Family/Other Liver cancer Other Mental health problem Social History Housing: House Alcohol intake: current Alcohol intake frequency: holidays/special occasions only Patient Tobacco Use Status: Never used Tobacco e-Cigarette/Vaping Use: Never Used Second Hand Smoke Exposure: Yes service: Yes Current occupational status: retired Cognitive needs: No Hearing needs: No Vision needs: Yes Questionnaire PHQ-9 Over the last 2 weeks, how often have you been bothered by any of the following problems? 1. Little interest or pleasure in doing things: not at all 2. Feeling down, depressed, or hopeless: not at all 3. Trouble falling or staying asleep, or sleeping too much: not at all 4. Feeling tired or having little energy: not at all 5. Poor appetite or overeating: not at all 6. Feeling bad about yourself - or that you are a failure or have let yourself or your family down: not at all 7. Trouble concentrating on things, such as reading the newspaper or watching television: not at all 8. Moving or speaking so slowly that other people could have noticed. Or the opposite - being so fidgety or restless that you have been moving around a lot more than usual: not at all 9. Thoughts that you would be better off or of hurting yourself in some way: not at all Total score: 0 Depression Screening Interpretation: Negative Depression Screening Done: Yes 96808 - PHQ-9 Billing: Yes Source: Developed by Drs. Jonatan Arenas, Rowena Grewal, Carlos Saldivar and colleagues, with an educational luh from [employer]. Thrive Questionnaire Date Thrive assessed: 02/12/24 I am a: Patient What is your living situation today?: I have a steady place to live Within the past 12 months, did the food you bought not last and you didn't have the money to get more?: Never true Within the past 12 months, did you worry whether your food would run out before you got money to buy more?: Never true Do you have trouble paying for medicines?: No Do you have trouble getting transportation to medical appointments?: No Do you have trouble paying your heating and electricity bill?: No Do you have trouble taking care of your child, family member or friend?: No Do you have trouble with day-to-day activities such as bathing, preparing meals, shopping, managing finances, etc.?: No Are you currently unemployed and looking for a job?: No Are you interested in more education?: No Please select the resources that you would like help with: None Currently or been in a relationship where the following occur: No concerns reported THRIVE Score: 0 AUDIT C Alcohol Use Questionnaire (AUDIT-C) 1. How often do you have a drink containing alcohol?: Monthly or less 2. How many drinks containing alcohol do you have on a typical day when you are drinking?: 1 or 2 3. How often do you have six or more drinks on one occasion?: Never Total Score: 1 Score Reviewed/Action Taken: Yes RAIMUNDO-7 AMB Questionnaire RAIMUNDO-7 Date RAIMUNDO - 7 assessed: 02/12/24 Feeling nervous, anxious, or on edge: 0 = Not at all Not being able to stop or control worryin = Not at all Worrying too much about different things: 0 = Not at all Trouble relaxin = Not at all Being so restless that it is hard to sit still: 0 = Not at all Becoming easily annoyed or irritable: 0 = Not at all Feeling afraid as if something awful might happen: 0 = Not at all Total RAIMUNDO-7 score (0-4 normal; 5-9 mild; 10-14 moderate; 15-21 severe): 0 Source: Developed by Drs. Jonatan Arenas, Rowena Grewal, Carlos Saldivar and colleagues, with an educational luh from [employer]. Review of Systems Const Denies chills, Denies fatigue, Denies fever(s) and Denies headache(s) ENT Denies dysphagia, Denies dizziness, Denies otalgia, Denies headache(s), Denies odynophagia and Denies sore throat Card Denies chest pain, Denies palpitations and Denies dyspnea Resp Denies cough and Denies dyspnea GI Denies abdominal pain, Denies constipation, Denies dysphagia, Denies diarrhea, Denies nausea, Denies odynophagia and Denies vomiting Denies dysuria, Denies nocturia and Denies urinary frequency Musc Denies back pain Skin/Breast Denies rash Neuro Denies dizziness and Denies headache(s) Endo Denies fatigue and Denies palpitations Physical exam (Primary Care) Vital Signs: Last Vital Signs Pulse 68 02/12/24 12:39 BP 130/82 02/12/24 12:39 Pulse Ox 99 02/12/24 12:39 Oxygen Delivery Method Room Air 02/12/24 12:39 BMI result Body Mass Index 23.8 Tobacco/Smoking Status: Tobacco use Status Tobacco use date assessed 02/12/24 02/12/24 12:45 Patient Tobacco Use Status Never used Tobacco 02/12/24 12:39 e-Cigarette/Vaping Use Never Used 02/12/24 12:39 PHQ-9: PHQ-9 Score PHQ-9: Total score 0 02/12/24 12:45 Depression Screening Interpretation: Negative Thrive Assessment: Date of Thrive Assessment Date Thrive assessed 02/12/24 02/12/24 12:45 Currently or been in a relationship where the following occur: No concerns reported Const General: no acute distress and alert HENMT Ears: TM's normal bilaterally and EAC's normal Throat: Yes posterior oropharynx normal and Yes tonsils normal (no TP congestion) Neck Neck: Yes no lymphadenopathy and Yes supple Thyroid: Thyroid normal Resp Auscultation: clear to auscultation bilaterally, no rales and no wheezes Cardio Rate: regular rate Rhythm: regular rhythm Heart sounds: no murmurs GI Palpation (GI): Soft to palpation and nontender Auscultation: normal bowel sounds General: Yes no CVA tenderness Back/Spine/Pelvis Back: no CVA tenderness Thoracic/Lumbar Spine: No lumbar spinal tenderness Skin Rashes: no rashes Extrem General: Yes no clubbing, cyanosis or edema Results Reviewed Results Reviewed: Laboratory Tests 02/11/24 08:24 WBC 6.4 Hgb 12.7 L Hct 38.2 L Plt Count 149 L Sodium 142 Potassium 3.4 Creatinine 0.81 Estimated GFR > 60 Fasting Glucose 116 H Hemoglobin A1c % 6.6 H Uric Acid 3.4 Calcium 9.2 AST 24 ALT 14 Triglycerides 52 Cholesterol 93 LDL Cholesterol, Calc 56 HDL Cholesterol 27 L TSH 2.39 Ur Specific [place] 1.015 Urine Protein Negative Urine Glucose (UA) Negative Urine Blood Negative Urine Nitrite Negative Ur Leukocyte Esterase Negative Microalb/Creat Ratio 7.4 Coding Level of Care Code Est Pt Level 4 (12840) Complex EM visit Add On G2211 Diagnoses Coronary artery disease involving [place] coronary artery of [place] heart without angina pectoris I25.10 Coronary Disease-Associated Artery/Lesion type: [place] artery [place] vs. transplanted heart: [place] heart Associated angina: without angina Type 2 diabetes mellitus without complication, without long-term current use of insulin E11.9 Diabetes mellitus type: type 2 Diabetes mellitus [employer] insulin use: without jail use Diabetes mellitus complication status: without complication Pure hypercholesterolemia E78.00 Benign essential hypertension I10 Idiopathic gout, unspecified chronicity, unspecified site M10.00 Gout site: unspecified site Gout etiology: idiopathic Chronicity: unspecified Vitamin D deficiency E55.9 Urinary frequency R35.0 Assessment & Plan Assessment & Plan (1) Coronary artery disease: Code(s): I25.10 - Atherosclerotic heart disease of [place] coronary artery without angina pectoris Category: Medical Qualifiers: Coronary Disease-Associated Artery/Lesion type: [place] artery [place] vs. transplanted heart: [place] heart Associated angina: without angina Qu alified Code(s): I25.10 - Atherosclerotic heart disease of [place] coronary artery without angina pectoris Plan: Patient remains asymptomatic from a cardiac standpoint Continue Aspirin 81 mg QD Follow up with cardiology as scheduled (2) Diabetes mellitus: Code(s): E11.9 - Type 2 diabetes mellitus without complications Category: Medical Qualifiers: Diabetes mellitus type: type 2 Diabetes mellitus [employer] insulin use: without [employer] use Diabetes mellitus complication status: without complicat ion Qualified Code(s): E11.9 - Type 2 diabetes mellitus without complications Plan: His HgbA1c remains well-controlled and unchanged from previous at 6.6% on his labs done yesterday (was also at 6.6% a few months ago) - goal is at least <7.0% but ideally <6.5% Reinforced diabetic diet Continue Metformin 1000 mg BID and Tradjenta 5 mg QD (3) Pure hypercholesterolemia: Code(s): E78.00 - Pure hypercholesterolemia, unspecified Category: Medical Plan: Results of his labs done yesterday reviewed and discussed with patient - his cholesterol levels remain well-controlled on his current Rx Reinforced low cholesterol diet Continue Simvastatin 40 mg QD Will recheck his labs and fasting lipids in 4 months for follow up (4) Benign essential hypertension: Code(s): I10 - Essential (primary) hypertension Category: Medical Plan: Reinforced low sodium diet - goal is systolic BP of at least 140 mm or less Continue Losartan 100 mg QD, Atenolol 25 mg QD and HCTZ 25 mg QD (5) Gout: Code(s): M10.9 - Gout, unspecified Category: Medical Qualifiers: Gout site: unspecified site Gout etiology: idiopathic Chronicity: unspecified Qualified Code(s): M10.00 - Idiopathic gout, unspecified site Plan: Patient has had no acute gout flares lately; serum uric acid level was again normal on his recent labs Reinforced low purine diet Continue Allopurinol?300 mg QD (6) Vitamin D deficiency: Code(s): E55.9 - Vitamin D deficiency, unspecified Category: Medical Plan: Continue Vitamin D3 1000 units QD (7) Urinary frequency: Code(s): R35.0 - Frequency of micturition Category: Medical Plan: This is most likely due to BPH His PSA level came out normal on his labs done a few months ago Discussed again options of Rx to help control his urinary symptoms and/or referral to urology for further evaluation and management - patient states that he will call for Rx or referral if his symptoms progress Plan Follow up in 4 months Orders: Orders Comprehensive [place]. Panel Fast 4 Months E78.00 - Pure hypercholesterolemia, unspecified Lipid Panel 4 Months E78.00 - Pure hypercholesterolemia, unspecified Hemoglobin A1c 4 Months E11.9 - Type 2 diabetes mellitus without complications Vitamin B12 and Folate 4 Months E53.8 - Deficiency of other specified B group vitamins Complete Blood Count Auto Diff 4 Months D64.9 - Anemia, unspecified Microalbumin, Random (w Creat) 4 Months E11.9 - Type 2 diabetes mellitus without complications UA CC w/rflx Micro + Cult 4 Months R30.0 - Dysuria Vitamin D 25-OH Total 4 Months E55.9 - Vitamin D deficiency, unspecified
== END 2024-02-12 13:14 | disposition home or self-care (01) ==
PROVIDERS: PCP Internal Medicine; Visit Provider Internal Medicine
DX: I25.10 Atherosclerotic heart disease of native coronary artery without angina pectoris (principal); E11.9 Type 2 diabetes mellitus without complications; E78.00 Pure hypercholesterolemia, unspecified; I10 Essential (primary) hypertension; M10.00 Idiopathic gout, unspecified site; E55.9 Vitamin D deficiency, unspecified; R35.0 Frequency of micturition

== ENCOUNTER → 2024-02-12 12:35 | Outpatient (BNVA) | payer MEDICARE, SELFPAY | PROVIDERS: PCP Internal Medicine; Visit Provider Internal Medicine | DX: I25.10 Atherosclerotic heart disease of native coronary artery without angina pectoris (principal); E11.9 Type 2 diabetes mellitus without complications; E78.00 Pure hypercholesterolemia, unspecified; I10 Essential (primary) hypertension; M10.00 Idiopathic gout, unspecified site; R35.0 Frequency of micturition; E55.9 Vitamin D deficiency, unspecified | CPT/HCPCS: 96127; 99212 ==

== ENCOUNTER 2024-04-02 13:54 | Outpatient (REF) | payer MEDICARE, SELFPAY ==
[2024-04-03 22:29] LABS: Lyme Abs Screen <0.90 index
== END 2024-04-02 13:55 | disposition home or self-care (01) ==
LOC: HO.HMGCLDS 13:54
PROVIDERS: PCP Internal Medicine; Visit Provider Internal Medicine
DX: T14.8XXA Other injury of unspecified body region, initial encounter (principal); W57.XXXA Bitten or stung by nonvenomous insect and other nonvenomous arthropods, initial encounter; Y93.9 Activity, unspecified; Y92.9 Unspecified place or not applicable; Y99.9 Unspecified external cause status
CPT/HCPCS: 36415; 86617; 86618

== ENCOUNTER 2024-06-17 08:46 | Outpatient (REF) | payer MEDICARE, SELFPAY ==
[2024-06-17 09:51] LABS: MANUAL DIFF FLAG NO
[2024-06-17 10:00] LABS: Basophils Percent Auto 0.6 % (0-2); Eosinophils Absolute Auto 0.1 X10*3/uL (0.0-0.4); Eosinophils Percent Auto 1.9 % (0-4); Hematocrit 37.2 % (42.0-52.0); Hemoglobin 12.3 g/dl (14.0-18.0); Imm Gran Abs Auto 0.03 X10*3/uL (0.00-0.03); Imm Gran Pct Auto 0.4 % (0.0-0.4); Lymphocytes Absolute Auto 1.7 X10*3/uL (1.2-4.9); Lymphocytes Percent Auto 23.6 % (20-40); Mean Corpuscular HGB Conc 33.1 g/dl (31.0-36.0); Mean Corpuscular Hemoglobin 30.1 pg (27.0-33.0); Mean Platelet Volume 11.4 fL (9.4-12.4); Monocytes Absolute Auto 0.5 X10*3/uL (0.1-1.2); Monocytes Percent Auto 7.2 % (2-11); Neutrophils Absolute Auto 4.6 x10*3/uL (2.0-8.3); Neutrophils Percent Auto 66.3 % (45-73); Platelet Count 154 X10*3/uL (160-400); Red Blood Count 4.09 X10*6/uL (4.60-5.80); Red Cell Distribution Width 13.3 % (11.0-16.0)
[2024-06-17 10:04] LABS: Appearance Urine Clear; Color Urine Yellow; Glucose Urine UA Negative (Negative); Leukocyte Esterase Urine Negative (Negative); Nitrite Urine Negative (Negative); PH 5.5 (5.0-9.0); UMIC TRIGGER UACC YES; Urine Blood Trace (Negative); Urine Ketones Trace mg/dL (Negative); Urine Protein Negative (Neg-Trace)
[2024-06-17 10:10] LABS: Bacteria Urine None Seen (None Seen); Hyaline Casts Urine 0-2 /LPF (0-2); Squamous Epithelial Cell Urine 0-2 /HPF (0-2); WBC Urine 0-5 /HPF (0-5)
[2024-06-17 10:23] LABS: Estimated Average Glucose 157 mg/dL; Hemoglobin A1C 179.1349 umol/L; Hemoglobin A1c % 7.1 % (<6.0); Total Hemoglobin (HGBA1C) 3285.3547 umol/L
[2024-06-17 10:37] LABS: Alanine Aminotransferase 17 U/L (0-40); Alkaline Phosphatase 65 U/L (39-117); Anion Gap 12 (12-20); Aspartate Amino Transferase 34 U/L (5-37); Bilirubin Total 0.4 mg/dL (0.0-1.0); Blood Urea Nitrogen 29 mg/dL (9-16); Calcium 9.1 mg/dL (8.4-10.2); Carbon Dioxide 29 mmol/L (22-29); Chloride 104 mmol/L (96-108); Cholesterol 84 mg/dL (<200); Estimated Glomerular Filt Rate > 60; Glucose Fasting 135 mg/dL (60-99); HDL Cholesterol 23 mg/dL (>40); LDL Cholesterol Calculated 46 mg/dL (<100); Potassium 4.2 mmol/L (3.3-5.1); Sodium 141 mmol/L (135-145); Total Protein 7.2 g/dL (6.5-8.0); Triglycerides 77 mg/dL (<150)
[2024-06-17 10:39] LABS: Vitamin D 25-OH Total 55.1 ng/mL (>30)
[2024-06-17 10:42] LABS: Creatinine Urine 91.82 mg/dL; Microalbum/Creatinine Ratio Ur 9.8 ug/mg cr (<30)
[2024-06-17 11:17] LABS: Folate 16.5 ng/mL (> or = 4.0); Vitamin B12 519 pg/mL (200-900)
== END 2024-06-17 08:47 | disposition home or self-care (01) ==
LOC: HO.HMGCLDS 08:46
PROVIDERS: PCP Internal Medicine; Visit Provider Internal Medicine
DX: D64.9 Anemia, unspecified (principal); E78.00 Pure hypercholesterolemia, unspecified; E11.9 Type 2 diabetes mellitus without complications; E55.9 Vitamin D deficiency, unspecified; E53.8 Deficiency of other specified B group vitamins
CPT/HCPCS: 36415; 80053; 80061; 81001; 81003; 82043; 82306; 82570; 82607; 82746; 83036; 85025

== ENCOUNTER 2024-06-18 12:35 | Outpatient (AMB) | payer MEDICARE, SELFPAY ==
[2024-06-18 12:40] VITALS: BP 130/86; PULSE 73; O2SAT 99; BMI 24.4
--- NOTE | 2024-06-18 12:40 | A.OFFPC_ITS ---
Vital Signs 06/18/24 12:40 Height 5 ft 7 in Weight 155 lb 8 oz BMI 24.4 BP 130/86 Blood Pressure Location Lt brachial Position Sitting Pulse 73 Pulse Source Pulse Oximeter Pulse Oximetry (%) 99 Oxygen Delivery Method Room Air Intake Visit Reasons: DM, hyperlipidemia, HTN, CAD Rn Utilization Management Um Required: No Accompanied by: Self / Same As Patient Allergies No Known Allergies Allergy (Verified 06/18/24 12:51) Medication List - Last Reconciled 06/18/24 by Rafael Sanchez MD allopurinol 300 mg PO DAILY ascorbate calcium (vitamin C) 500 mg PO DAILY aspirin (Adult Aspirin Regimen) 81 mg PO DAILY atenolol 25 mg PO DAILY blood sugar diagnostic (FreeStyle Lite Strips) 1 strip miscellaneous TID cholecalciferol (vitamin D3) 25 mcg PO DAILY hydrochlorothiazide 25 mg PO DAILY Lactobacillus rhamnosus GG (Culturelle) 15,000 mmu cells PO DAILY lancets (FreeStyle Lancets) 1 gauge topical TID losartan 100 mg PO DAILY metformin 1,000 mg PO BID omega-3 fatty acids-fish oil 360-1,200 mg (Fish Oil) 1 cap PO DAILY simvastatin 40 mg PO QPM Tradjenta (linagliptin) 5 mg PO DAILY 90 days NS Tobacco use date assessed: 06/18/24 Fall risk assessment: No Falls in past year Last assessed Fall Risk: 06/18/24 Dental Screening Dental Screen Date: 06/18/24 Did you have a dental visit in the last 12 months?: Yes Did you have a dental problem in the last 6 months where you did not have access to dental care?: No Was dental information given to patient?: Patient has dentist HPI DM, hyperlipidemia, HTN, CAD HPI Details Patient comes in today for his follow up visit States that he feels okay He denies any headaches or dizziness Denies any chest pains, no SOB No nausea/vomiting, no abdominal pain No change in bowel habits noted He had his follow up labs done yesterday - to discuss his results REPLACED BY [facility] Medical History COVID-19 vaccine series completed History of COVID-19 History of postoperative nausea Left inguinal hernia Left inguinal hernia Vitamin D deficiency Gout Pure hypercholesterolemia Benign essential hypertension Diabetes mellitus Coronary artery disease Surgical History S/P left inguinal hernia repair (~10/15/20) Hx of colonoscopy (~04/2011) History of heart bypass surgery History of appendectomy Family History Father CVD (cardiovascular disease) Mother Chronic mental illness Family/Other Liver cancer Other Mental health problem Social History Housing: House Alcohol intake: current Alcohol intake frequency: holidays/special occasions only Patient Tobacco Use Status: Never used Tobacco e-Cigarette/Vaping Use: Never Used Second Hand Smoke Exposure: Yes service: Yes Current occupational status: retired Cognitive needs: No Hearing needs: No Vision needs: Yes Questionnaire PHQ-9 Over the last 2 weeks, how often have you been bothered by any of the following problems? 1. Little interest or pleasure in doing things: not at all 2. Feeling down, depressed, or hopeless: not at all 3. Trouble falling or staying asleep, or sleeping too much: not at all 4. Feeling tired or having little energy: not at all 5. Poor appetite or overeating: not at all 6. Feeling bad about yourself - or that you are a failure or have let yourself or your family down: not at all 7. Trouble concentrating on things, such as reading the newspaper or watching television: not at all 8. Moving or speaking so slowly that other people could have noticed. Or the opposite - being so fidgety or restless that you have been moving around a lot more than usual: not at all 9. Thoughts that you would be better off or of hurting yourself in some way: not at all Total score: 0 Depression Screening Interpretation: Negative Depression Screening Done: Yes 64520 - PHQ-9 Billing: Yes Source: Developed by Drs. Jonatan Arenas, Rowena Grewal, Carlos Saldivar and colleagues, with an educational luh from [employer]. Thrive Questionnaire Date Thrive assessed: 06/18/24 I am a: Patient What is your living situation today?: I have a steady place to live Within the past 12 months, did the food you bought not last and you didn't have the money to get more?: Never true Within the past 12 months, did you worry whether your food would run out before you got money to buy more?: Never true Do you have trouble paying for medicines?: No Do you have trouble getting transportation to medical appointments?: No Do you have trouble paying your heating and electricity bill?: No Do you have trouble taking care of your child, family member or friend?: No Do you have trouble with day-to-day activities such as bathing, preparing meals, shopping, managing finances, etc.?: No Are you currently unemployed and looking for a job?: No Are you interested in more education?: No Please select the resources that you would like help with: None Currently or been in a relationship where the following occur: No concerns reported THRIVE Score: 0 AUDIT C Alcohol Use Questionnaire (AUDIT-C) 1. How often do you have a drink containing alcohol?: Monthly or less 2. How many drinks containing alcohol do you have on a typical day when you are drinking?: 1 or 2 3. How often do you have six or more drinks on one occasion?: Never Total Score: 1 Score Reviewed/Action Taken: Yes RAIMUNDO-7 AMB Questionnaire RAIMUNDO-7 Date RAIMUNDO - 7 assessed: 06/18/24 Feeling nervous, anxious, or on edge: 0 = Not at all Not being able to stop or control worryin = Not at all Worrying too much about different things: 0 = Not at all Trouble relaxin = Not at all Being so restless that it is hard to sit still: 0 = Not at all Becoming easily annoyed or irritable: 0 = Not at all Feeling afraid as if something awful might happen: 0 = Not at all Total RAIMUNDO-7 score (0-4 normal; 5-9 mild; 10-14 moderate; 15-21 severe): 0 Source: Developed by Drs. Jonatan Arenas, Rowena Grewal, Carlos Saldivar and colleagues, with an educational luh from [employer]. Review of Systems Const Denies chills, Denies fatigue, Denies fever(s) and Denies headache(s) ENT Denies dysphagia, Denies dizziness, Denies otalgia, Denies headache(s), Denies odynophagia and Denies sore throat Card Denies chest pain, Denies palpitations and Denies dyspnea Resp Denies cough and Denies dyspnea GI Denies abdominal pain, Denies constipation, Denies dysphagia, Denies diarrhea, Denies nausea, Denies odynophagia and Denies vomiting Denies dysuria, Denies nocturia and Denies urinary frequency Musc Denies back pain Skin/Breast Denies rash Neuro Denies dizziness and Denies headache(s) Endo Denies fatigue and Denies palpitations Physical exam (Primary Care) Vital Signs: Last Vital Signs Pulse 73 06/18/24 12:40 BP 130/86 06/18/24 12:40 Pulse Ox 99 06/18/24 12:40 Oxygen Delivery Method Room Air 06/18/24 12:40 BMI result Body Mass Index 24.4 Tobacco/Smoking Status: Tobacco use Status Tobacco use date assessed 06/18/24 06/18/24 12:48 Patient Tobacco Use Status Never used Tobacco 06/18/24 12:48 e-Cigarette/Vaping Use Never Used 06/18/24 12:48 PHQ-9: PHQ-9 Score PHQ-9: Total score 0 06/18/24 12:48 Depression Screening Interpretation: Negative Thrive Assessment: Date of Thrive Assessment Date Thrive assessed 06/18/24 06/18/24 12:48 Currently or been in a relationship where the following occur: No concerns reported Const General: no acute distress and alert HENMT Ears: TM's normal bilaterally and EAC's normal Throat: Yes posterior oropharynx normal and Yes tonsils normal (no TP nguyen estion) Neck Neck: Yes supple and No lymphadenopathy Thyroid: Thyroid normal Resp Auscultation: clear to auscultation bilaterally, no rales and no wheezes Cardio Rate: regular rate Rhythm: regular rhythm Heart sounds: no murmurs GI Palpation (GI): Soft to palpation and nontender Auscultation: normal bowel sounds General: Yes no CVA tenderness Back/Spine/Pelvis Back: no CVA tenderness Thoracic/Lumbar Spine: No lumbar spinal tenderness Skin Rashes: no rashes Extrem General: Yes no clubbing, cyanosis or edema Results Reviewed Results Reviewed: Laboratory Tests 02/11/24 06/17/24 06/17/24 08:24 08:50 08:55 WBC 7.0 Hgb 12.3 L Hct 37.2 L Plt Count 154 L Sodium 141 Potassium 4.2 D Creatinine 0.83 Estimated GFR > 60 Fasting Glucose 135 H Hemoglobin A1c % 7.1 H Calcium 9.1 AST 34 ALT 17 Triglycerides 77 Cholesterol 84 LDL Cholesterol, Calc 46 HDL Cholesterol 23 L Vitamin B12 519 25-OH Vitamin D Total 55.1 TSH 2.39 Ur Specific [place] 1.020 Urine Protein Negative Urine Glucose (UA) Negative Urine Blood Trace Urine Nitrite Negative Ur Leukocyte Esterase Negative Microalb/Creat Ratio 9.8 Coding Level of Care Code Est Pt Level 4 (13059) Diagnoses Coronary artery disease involving [place] coronary artery of [place] heart without angina pectoris I25.10 Coronary Disease-Associated Artery/Lesion type: [place] artery [place] vs. transplanted heart: [place] heart Associated angina: without angina Type 2 diabetes mellitus without complication, without long-term current use of insulin E11.9 Diabetes mellitus type: type 2 Diabetes mellitus intermediate project manager insulin use: without intermediate project manager use Diabetes mellitus complication status: without complication Pure hypercholesterolemia E78.00 Benign essential hypertension I10 Idiopathic gout, unspecified chronicity, unspecified site M10.00 Gout site: unspecified site Gout etiology: idiopathic Chronicity: unspecified Vitamin D deficiency E55.9 Urinary frequency R35.0 Additional Codes PHQ-9 - 47641 - PHQ-9 Billing: Yes ([id number]) Assessment & Plan Assessment & Plan (1) Coronary artery disease: Code(s): I25.10 - Atherosclerotic heart disease of [place] coronary artery without angina pectoris Category: Medical Qualifiers: Coronary Disease-Associated Artery/Lesion type: [place] artery [place] vs. transplanted heart: [place] heart Associated angina: without angina Qualified Code(s): I25.10 - Atherosclerotic heart disease of [place] coronary artery without angina pectoris Plan: Patient remains asymptomatic from a cardiac standpoint Continue Aspirin 81 mg QD Follow up with cardiology as scheduled (2) Diabetes mellitus: Code(s): E11.9 - Type 2 diabetes mellitus without complications Category: Medical Qualifiers: Diabetes mellitus type: type 2 Diabetes mellitus intermediate project manager insulin use: without intermediate project manager use Diabetes mellitus complication status: without complication Qualified Code(s): E11.9 - Type 2 diabetes mellitus without complications Plan: His HgbA1c has increased to 7.1% on his labs done yesterday (was previously at 6.6% a few months ago) - goal is at least <7.0% but ideally <6.5% Patient states that he has noticed that his blood sugar readings have been more erratic lately when he checks them in the associate account director States that he has been eating a lot of protein bars recently to try to keep his weight up but will now try to be more aware of this Reinforced diabetic diet Continue Metformin 1000 mg BID and Tradjenta 5 mg QD for now (3) Pure hypercholesterolemia: Code(s): E78.00 - Pure hypercholesterolemia, unspecified Category: Medical Plan: Results of his labs done yesterday reviewed and discussed with patient - his cholesterol levels remain well-controlled on his current Rx Reinforced low cholesterol diet Continue Simvastatin 40 mg QD Will recheck his labs and fasting lipids in 4 months for follow up (4) Benign essential hypertension: Code(s): I10 - Essential (primary) hypertension Category: Medical Plan: Reinforced low sodium diet - goal is systolic BP of at least 140 mm or less Continue Losartan 100 mg QD, Atenolol 25 mg QD and HCTZ 25 mg QD (5) Gout: Code(s): M10.9 - Gout, unspecified Category: Medical Qualifiers: Gout site: unspecified site Gout etiology: idiopathic Chronicity: unspecified Qualified Code(s): M10.00 - Idiopathic gout, unspecified site Plan: Patient has had no acute gout flares lately; serum uric acid level was again normal on his recent labs Reinforced low purine diet Continue Allopurinol?300 mg QD (6) Vitamin D deficiency: Code(s): E55.9 - Vitamin D deficiency, unspecified Category: Medical Plan: Continue Vitamin D3 1000 units QD (7) Urinary frequency: Code(s): R35.0 - Frequency of micturition Category: Medical Plan: This is most likely due to BPH His PSA level came out normal on his labs done last year Discussed again options of Rx to help control his urinary symptoms and/or referral to urology for further evaluation and management - patient states that he will call for Rx or referral if his symptoms progress Plan Follow up in 4 months Orders: Orders Hemoglobin A1c 4 Months E11.9 - Type 2 diabetes mellitus without complications Lipid Panel 4 Months E78.00 - Pure hypercholesterolemia, unspecified Comprehensive [place]. Panel Fast 4 Months E78.00 - Pure hypercholesterolemia, unspecified TSH reflex Free T4 4 Months E78.00 - Pure hypercholesterolemia, unspecified UA CC w/rflx Micro + Cult 4 Months R30.0 - Dysuria Vitamin D 25-OH Total 4 Months E55.9 - Vitamin D deficiency, unspecified Complete Blood Count Auto Diff 4 Months D64.9 - Anemia, unspecified Microalbumin, Random (w Creat) 4 Months E11.9 - Type 2 diabetes mellitus without complications
== END 2024-06-18 13:07 | disposition home or self-care (01) ==
PROVIDERS: PCP Internal Medicine; Visit Provider Internal Medicine
DX: I25.10 Atherosclerotic heart disease of native coronary artery without angina pectoris (principal); E11.9 Type 2 diabetes mellitus without complications; E78.00 Pure hypercholesterolemia, unspecified; I10 Essential (primary) hypertension; M10.00 Idiopathic gout, unspecified site; E55.9 Vitamin D deficiency, unspecified; R35.0 Frequency of micturition

== ENCOUNTER → 2024-06-18 12:35 | Outpatient (BNVA) | payer MEDICARE, SELFPAY | PROVIDERS: PCP Internal Medicine; Visit Provider Internal Medicine | DX: I25.10 Atherosclerotic heart disease of native coronary artery without angina pectoris (principal); E11.9 Type 2 diabetes mellitus without complications; E78.00 Pure hypercholesterolemia, unspecified; I10 Essential (primary) hypertension; M10.00 Idiopathic gout, unspecified site; E55.9 Vitamin D deficiency, unspecified; R35.0 Frequency of micturition | CPT/HCPCS: 96127; 99212 ==

== ENCOUNTER 2024-10-27 08:27 | Outpatient (REF) | payer MEDICARE, SELFPAY ==
--- OUTSIDE RECORDS SUMMARY | 2024-10-27 08:35 | XMS_ITS | Patient Health Record ---
Author Organization [facility] Address [address] [place] [address] Care Team Providers Care Electronics Teacher Name Role Phone Daniel GORMAN, Rafael Primary Care Provider Jonatan Rodríguez Unavailable [phone] Reason For Referral No Information Medications Medication SIG (Take, Route, Fr equency, Duration) Notes Start Date End Date Status hydroCHLOROthiazide Active Atenolol Active Allopurinol Active Aspir-81 Active Simvastatin Active Fish Oil Active Losartan Potassium A ctive MoviPrep 100 GM as directed Orally 03/08/2011 Active Problems Problem Type SNOMED Code ICD Code Onset Dates Problem Status W/U Status Risk Notes Problem History of polyp of colon (situation) (103392124) Personal history of colonic polyps (V12.72) Active confirmed Problem Screening for malignant neoplasm of colon (817398739) Special screening for malignant neoplasms, colon (V76.51) Active confirmed Plan Of Treatment Future Test Test Name Order Date COLONOSCOPY 03/08/2011 Insurance Providers Payer Name Payer Address Payer Phone Subscriber Number Group Number Insured Name Patient Relationship to Insured Coverage Start Date Coverage End Date MEDICARE OF [place] [address] [place] [address] [id number] CARINE LEE Self - patient is the insured [employer] ATT[employer] CLAIMS [address] [place] [address] [phone] [id number] CARINE LEE Self - patient is the insured Medical (General) History Medical History History ICD Code hypertension hyperlipidemia gout [place], lung disease, stroke, or diabetes Surgical History Surgery Date(Month/Year) coronary artery bypass surgery in the appendectomy
[2024-10-27 10:04] LABS: MANUAL DIFF FLAG NO
[2024-10-27 10:21] LABS: Appearance Urine Clear; Color Urine Yellow; Glucose Urine UA Negative (Negative); Leukocyte Esterase Urine Negative (Negative); Nitrite Urine Negative (Negative); PH 5.5 (5.0-9.0); Specific Gravity - Urine 1.015 (1.005-1.025); Urine Blood Negative (Negative); Urine Ketones Negative (Negative); Urine Protein Negative (Neg-Trace)
[2024-10-27 10:32] LABS: Basophils Percent Auto 0.4 % (0-2); Eosinophils Absolute Auto 0.2 X10*3/uL (0.0-0.4); Eosinophils Percent Auto 2.2 % (0-4); Estimated Average Glucose 148 mg/dL; Hematocrit 37.3 % (42.0-52.0); Hemoglobin 12.3 g/dl (14.0-18.0); Hemoglobin A1C 161.7899 umol/L; Hemoglobin A1c % 6.8 % (<6.0); Imm Gran Abs Auto 0.04 X10*3/uL (0.00-0.03); Imm Gran Pct Auto 0.5 % (0.0-0.4); Lymphocytes Absolute Auto 2.2 X10*3/uL (1.2-4.9); Lymphocytes Percent Auto 27.2 % (20-40); Mean Corpuscular Hemoglobin 29.6 pg (27.0-33.0); Mean Corpuscular Volume 89.7 fL (80.0-98.0); Mean Platelet Volume 11.6 fL (9.4-12.4); Monocytes Absolute Auto 0.5 X10*3/uL (0.1-1.2); Monocytes Percent Auto 6.1 % (2-11); Neutrophils Absolute Auto 5.2 x10*3/uL (2.0-8.3); Neutrophils Percent Auto 63.6 % (45-73); Platelet Count 176 X10*3/uL (160-400); Red Blood Count 4.16 X10*6/uL (4.60-5.80); Red Cell Distribution Width 14.2 % (11.0-16.0); White Blood Count 8.2 X10*3/uL (4.8-10.8)
[2024-10-27 10:56] LABS: Alanine Aminotransferase 13 U/L (0-40); Albumin Level 4.1 g/dL (3.5-5.0); Alkaline Phosphatase 64 U/L (39-117); Anion Gap 11 (12-20); Aspartate Amino Transferase 28 U/L (5-37); Bilirubin Total 0.6 mg/dL (0.0-1.0); Blood Urea Nitrogen 22 mg/dL (9-16); Calcium 8.9 mg/dL (8.4-10.2); Carbon Dioxide 29 mmol/L (22-29); Chloride 102 mmol/L (96-108); Cholesterol 90 mg/dL (<200); Estimated Glomerular Filt Rate > 60; Glucose Fasting 111 mg/dL (60-99); HDL Cholesterol 24 mg/dL (>40); LDL Cholesterol Calculated 53 mg/dL (<100); Potassium 3.4 mmol/L (3.3-5.1); Sodium 139 mmol/L (135-145); TSH reflex Free T4 2.42 uIU/mL (0.32-4.0); Triglycerides 66 mg/dL (<150); Vitamin D 25-OH Total 41.8 ng/mL (>30)
[2024-10-27 11:19] LABS: Creatinine Urine 67.57 mg/dL; Microalbumin Urine < 5.0 mg/L
== END 2024-10-27 08:28 | disposition home or self-care (01) ==
LOC: HO.HMGCLDS 08:27
PROVIDERS: PCP Internal Medicine; Visit Provider Internal Medicine
DX: E78.00 Pure hypercholesterolemia, unspecified (principal); R30.0 Dysuria; D64.9 Anemia, unspecified; E11.9 Type 2 diabetes mellitus without complications; E55.9 Vitamin D deficiency, unspecified
CPT/HCPCS: 36415; 80053; 80061; 81003; 82043; 82306; 82570; 83036; 84443; 85025

== ENCOUNTER 2024-10-28 12:34 | Outpatient (AMB) | payer MEDICARE, SELFPAY ==
[2024-10-28 12:38] VITALS: BP 134/60; PULSE 78; O2SAT 96; BMI 24.0
--- NOTE | 2024-10-28 12:38 | MHC.PC.OV ---
Vital Signs 10/28/24 12:38 Height 5 ft 7 in Weight 153 lb 2 oz BMI 24.0 BP 134/60 Blood Pressure Location Lt brachial Position Sitting Pulse 78 Pulse Source Pulse Oximeter Pulse Oximetry (%) 96 Oxygen Delivery Method Room Air Intake Visit Re[facility] Surgical Dental Assistant Required: No Accompanied by: Self / Same As Patient Allergies No Known Allergies Allergy (Verified 10/28/24 13:06) Medication List - Last Reconciled 10/28/24 by Rafael Sanchez MD allopurinol 300 mg PO DAILY ascorbate calcium (vitamin C) 500 mg PO DAILY aspirin (Adult Aspirin Regimen) 81 mg PO DAILY atenolol 25 mg PO DAILY blood sugar diagnostic (FreeStyle Lite Strips) 1 strip miscellaneous TID cholecalciferol (vitamin D3) 25 mcg PO DAILY hydrochlorothiazide 25 mg PO DAILY Lactobacillus rhamnosus GG (Culturelle) 15,000 mmu cells PO DAILY lancets (FreeStyle Lancets) 1 gauge topical TID losartan 100 mg PO DAILY metformin 1,000 mg PO BID omega-3 fatty acids-fish oil 360-1,200 mg (Fish Oil) 1 cap PO DAILY simvastatin 40 mg PO QPM Tradjenta (linagliptin) 5 mg PO DAILY 90 days NS Tobacco use date assessed: 10/28/24 Fall risk assessment: No Falls in past year Last assessed Fall Risk: 10/28/24 Dental Screening Dental Screen Date: 10/28/24 Did you have a dental visit in the last 12 months?: Yes Did you have a dental problem in the last 6 months where you did not have access to dental care?: No Was dental information given to patient?: Patient has dentist [facility] HPI Details Patient comes in today for his follow up visit States that he feels okay He denies any headaches or dizziness Denies any chest pains, no increased SOB No nausea/vomiting, no abdominal pain No change in bowel habits noted He had his follow up labs done yesterday - to discuss his results [facility] Medical History COVID-19 vaccine series completed History of COVID-19 History of postoperative nausea Left inguinal hernia Left inguinal hernia Vitamin D deficiency Gout Pure hypercholesterolemia Benign essential hypertension Diabetes mellitus Coronary artery disease Surgical History S/P left inguinal hernia repair (~10/15/20) Hx of colonoscopy (~04/2011) History of heart bypass surgery History of appendectomy Family History Father CVD (cardiovascular disease) Mother Chronic mental illness Family/Other Liver cancer Other Mental health problem Social History Housing: House Alcohol intake: current Alcohol intake frequency: holidays/special occasions only Patient Tobacco Use Status: Never used Tobacco e-Cigarette/Vaping Use: Never Used Second Hand Smoke Exposure: Yes service: Yes Current occupational status: retired Cognitive needs: No Hearing needs: No Vision needs: Yes Questionnaire PHQ-9 Over the last 2 weeks, how often have you been bothered by any of the following problems? 1. Little interest or pleasure in doing things: not at all 2. Feeling down, depressed, or hopeless: not at all 3. Trouble falling or staying asleep, or sleeping too much: not at all 4. Feeling tired or having little energy: not at all 5. Poor appetite or overeating: not at all 6. Feeling bad about yourself - or that you are a failure or have let yourself or your family down: not at all 7. Trouble concentrating on things, such as reading the newspaper or watching television: not at all 8. Moving or speaking so slowly that other people could have noticed. Or the opposite - being so fidgety or restless that you have been moving around a lot more than usual: not at all 9. Thoughts that you would be better off or of hurting yourself in some way: not at all Total score: 0 Depression Screening Interpretation: Negative Depression Screening Done: Yes 02452 - PHQ-9 Billing: Yes Source: Developed by Drs. Jonatan Arenas, Rowena Grewal, Carlos Saldivar and colleagues, with an educational luh from [employer]. Thrive Questionnaire Date Thrive assessed: 10/28/24 I am a: Patient What is your living situation today?: I have a steady place to live Within the past 12 months, did the food you bought not last and you didn't have the money to get more?: Never true Within the past 12 months, did you worry whether your food would run out before you got money to buy more?: Never true Do you have trouble paying for medicines?: No Do you have trouble getting transportation to medical appointments?: No Do you have trouble paying your heating and electricity bill?: No Do you have trouble taking care of your child, family member or friend?: No Do you have trouble with day-to-day activities such as bathing, preparing meals, shopping, managing finances, etc.?: No Are you currently unemployed and looking for a job?: No Are you interested in more education?: No Please select the resources that you would like help with: None Currently or been in a relationship where the following occur: No concerns reported THRIVE Score: 0 AUDIT C Alcohol Use Questionnaire (AUDIT-C) 1. How often do you have a drink containing alcohol?: Monthly or less 2. How many drinks containing alcohol do you have on a typical day when you are drinking?: 1 or 2 3. How often do you have six or more drinks on one occasion?: Never Total Score: 1 Score Reviewed/Action Taken: Yes RAIMUNDO-7 AMB Questionnaire RAIMUNDO-7 Date RAIMUNDO - 7 assessed: 10/28/24 Feeling nervous, anxious, or on edge: 0 = Not at all Not being able to stop or control worryin = Not at all Worrying too much about different things: 0 = Not at all Trouble relaxin = Not at all Being so restless that it is hard to sit still: 0 = Not at all Becoming easily annoyed or irritable: 0 = Not at all Feeling afraid as if something awful might happen: 0 = Not at all Total RAIMUNDO-7 score (0-4 normal; 5-9 mild; 10-14 moderate; 15-21 severe): 0 Source: Developed by Drs. Jonatan Arenas, Rowena Grewal, Carlos Saldivar and colleagues, with an educational luh from [employer]. Review of Systems Const Denies chills, Denies fatigue, Denies fever(s) and Denies headache(s) ENT Denies dysphagia, Denies dizziness, Denies otalgia, Denies headache(s), Denies neck pain, Denies odynophagia and Denies sore throat Card Denies chest pain, Denies palpitations and Denies dyspnea Resp Denies cough and Denies dyspnea GI Denies abdominal pain, Denies constipation, Denies dysphagia, Denies diarrhea, Denies nausea, Denies odynophagia and Denies vomiting Denies dysuria, Denies nocturia and Denies urinary frequency Musc Denies back pain and Denies neck pain Skin/Breast Denies rash Neuro Denies dizziness and Denies headache(s) Endo Denies fatigue and Denies palpitations Physical exam (Primary Care) Vital Signs: Last Vital Signs Pulse 78 10/28/24 12:38 BP 134/60 10/28/24 12:38 Pulse Ox 96 10/28/24 12:38 Oxygen Delivery Method Room Air 10/28/24 12:38 BMI result Body Mass Index 24.0 Tobacco/Smoking Status: Tobacco use Status Tobacco use date assessed 10/28/24 10/28/24 12:44 Patient Tobacco Use Status Never used Tobacco 10/28/24 12:44 e-Cigarette/Vaping Use Never Used 10/28/24 12:44 PHQ-9: PHQ-9 Score PHQ-9: Total score 0 10/28/24 12:44 Depression Screening Interpretation: Negative Thrive Assessment: Date of Thrive Assessment Date Thrive assessed 10/28/24 10/28/24 12:44 Currently or been in a relationship where the following occur: No concerns reported Const General: no acute distress and alert HENMT Ears: TM's normal bilaterally and EAC's normal Throat: Yes posterior oropharynx normal and Yes tonsils normal (no TP congestion) Neck Neck: Yes supple and No lymphadenopathy Thyroid: Thyroid normal Resp Auscultation: clear to auscultation bilaterally, no rales and no wheezes Cardio Rate: regular rate Rhythm: regular rhythm Heart sounds: no murmurs GI Palpation (GI): Soft to palpation and nontender Auscultation: normal bowel sounds General: Yes no CVA tenderness Back/Spine/Pelvis Back: no CVA tenderness Thoracic/Lumbar Spine: No lumbar spinal tenderness Skin Rashes: no rashes Extrem General: Yes no clubbing, cyanosis or edema Results Reviewed Results Reviewed: Laboratory Tests 10/27/24 10/27/24 08:32 08:40 WBC 8.2 Hgb 12.3 L Hct 37.3 L Plt Count 176 Sodium 139 Potassium 3.4 Creatinine 0.81 Estimated GFR > 60 Fasting Glucose 111 H Hemoglobin A1c % 6.8 H Calcium 8.9 AST 28 ALT 13 Triglycerides 66 Cholesterol 90 LDL Cholesterol, Calc 53 HDL Cholesterol 24 L 25-OH Vitamin D Total 41.8 TSH 2.42 Ur Specific [place] 1.015 Urine Protein Negative Urine Glucose (UA) Negative Urine Blood Negative Urine Nitrite Negative Ur Leukocyte Esterase Negative Urine Microalbumin < 5.0 Coding Level of Care Code Est Pt Level 4 (53261) Complex EM visit Add On G2211 Diagnoses Coronary artery disease involving [place] coronary artery of [place] heart without angina pectoris I25.10 Coronary Disease-Associated Artery/Lesion type: [place] artery [place] vs. transplanted heart: [place] heart Associated angina: without angina Pure hypercholesterolemia E78.00 Type 2 diabetes mellitus without complication, without long-term current use of insulin E11.9 Diabetes mellitus type: type 2 Diabetes mellitus buttermaker helper insulin use: without buttermaker helper use Diabetes mellitus complication status: without complication Benign essential hypertension I10 Idiopathic gout, unspecified chronicity, unspecified site M10.00 Gout site: unspecified site Gout etiology: idiopathic Chronicity: unspecified Mild chronic anemia D64.9 Vitamin D deficiency E55.9 Urinary frequency R35.0 Additional Codes PHQ-9 - 93792 - PHQ-9 Billing: Yes ([id number]) Assessment & Plan Assessment & Plan (1) Coronary artery disease: Code(s): I25.10 - Atherosclerotic heart disease of [place] coronary artery without angina pectoris Category: Medical Qualifiers: Coronary Disease-Associated Artery/Lesion type: [place] artery [place] vs. transplanted heart: [place] heart Associated angina: without angina Qualified Code(s): I25.10 - Atherosclerotic heart disease of [place] coronary artery without angina pectoris Plan: Continue Aspirin 81 mg QD Patient remains asymptomatic from a cardiac standpoint Follow up with cardiology as scheduled (2) Pure hypercholesterolemia: Code(s): E78.00 - Pure hypercholesterolemia, unspecified Category: Medical Plan: Results of his labs done yesterday reviewed and discussed with patient - his cholesterol levels remain well-controlled on his current Rx Reinforced low cholesterol diet Continue Simvastatin 40 mg QD Will recheck his labs and fasting lipids in 4 months for follow up (3) Diabetes mellitus: Code(s): E11.9 - Type 2 diabetes mellitus without complications Category: Medical Qualifiers: Diabetes mellitus type: type 2 Diabetes mellitus buttermaker helper insulin use: without buttermaker helper use Diabetes mellitus complication status: without complication Qualified Code(s): E11.9 - Type 2 diabetes mellitus without complications Plan: His HgbA1c has improved slightly to 6.8% on his labs done yesterday (was previously at 7.1% a few months ago) - goal is at least <7.0% but ideally <6.5% Reinforced diabetic diet Continue Metformin 1000 mg BID and Tradjenta 5 mg QD (4) Benign essential hypertension: Code(s): I10 - Essential (primary) hypertension Category: Medical Plan: Reinforced low sodium diet - goal is systolic BP of at least 140 mm or less Continue Losartan 100 mg QD, Atenolol 25 mg QD and HCTZ 25 mg QD (5) Gout: Code(s): M10.9 - Gout, unspecified Category: Medical Qualifiers: Gout site: unspecified site Gout etiology: idiopathic Chronicity: unspecified Qualified Code(s): M10.00 - Idiopathic gout, unspecified site Plan: Patient has had no acute gout flares lately; serum uric acid level was again normal on his recent labs Reinforced low purine diet Continue Allopurinol?300 mg QD (6) Mild chronic anemia: Code(s): D64.9 - Anemia, unspecified Category: Medical Plan: Work ups done in the past to check for iron deficiency and B12 deficiency have all come back normal Have advised patient that he's had mild anemia consistently for at least the past 8 to 10 years but his H/H have been steady and have not really changed much over the years and if he has no acute symptoms related to his mild anemia, then no interventions or further work ups are needed at this time Will just continue to monitor his CBC regularly for now (7) Vitamin D deficiency: Code(s): E55.9 - Vitamin D deficiency, unspecified Category: Medical Plan: Continue Vitamin D3 1000 units QD (8) Urinary frequency: Code(s): R35.0 - Frequency of micturition Category: Medical Plan: This is most likely due to BPH His PSA level came out normal on his labs done last year Discussed again options of Rx to help control his urinary symptoms and/or referral to urology for further evaluation and management - patient states that he will call for Rx or referral if his symptoms progress Plan Follow up in 4 months Orders: Orders Lipid Panel 4 Months E78.00 - Pure hypercholesterolemia, unspecified Comprehensive [place]. Panel Fast 4 Months E78.00 - Pure hypercholesterolemia, unspecified Hemoglobin A1c 4 Months E11.9 - Type 2 diabetes mellitus without complications TSH reflex Free T4 4 Months E78.00 - Pure hypercholesterolemia, unspecified UA CC w/rflx Micro + Cult 4 Months R30.0 - Dysuria Vitamin B12 and Folate 4 Months E53.8 - Deficiency of other specified B group vitamins Uric Acid 4 Months M10.9 - Gout, unspecified Complete Blood Count Auto Diff 4 Months D64.9 - Anemia, unspecified Microalbumin, Random (w Creat) 4 Months E11.9 - Type 2 diabetes mellitus without complications Vitamin D 25-OH Total 4 Months E55.9 - Vitamin D deficiency, unspecified
--- OUTSIDE RECORDS SUMMARY | 2024-10-28 13:28 | XMS_ITS | Patient Health Record ---
Author Organization [facility] Address [address] [place] [address] Care Team Providers Care Court Crier Name Role Phone Daniel GORMAN, Rafael Primary Care Provider Jonatan Rodríguez Unavailable [phone] Reason For Referral No Information Medications Medication [...] Problem History of polyp of colon (situation) ([id number]) Personal history of colonic polyps (V12.72) Active confirmed Problem Special screening for malignant neoplasms, colon (V76.51) Active confirmed Plan Of Treatment Future Test Test Name Order Date COLONOSCOPY 03/08/2011 Insurance Providers Payer Name Payer Address Payer Phone Subscriber Number Group Number Insured Name Patient Relationship to Insured Coverage Start Date Coverage End Date MEDICARE OF [place] [address] [place] [address] [id number] CARINE LEE Self - patient is the insured [employer] CLAIMS [address] [place] [address] [phone] [id number] CARINE LEE Self - patient is the insured Medical (General) History Medical History History ICD Code hypertension hyperlipidemia gout OR, lung disease, stroke, or diabetes Surgical History Surgery Date(Month/Year) coronary artery bypass surgery in the appendectomy
== END 2024-10-28 13:10 | disposition home or self-care (01) ==
LOC: HO.HMCH 12:36
PROVIDERS: PCP Internal Medicine; Visit Provider Internal Medicine
DX: I25.10 Atherosclerotic heart disease of native coronary artery without angina pectoris (principal); E78.00 Pure hypercholesterolemia, unspecified; E11.9 Type 2 diabetes mellitus without complications; I10 Essential (primary) hypertension; M10.00 Idiopathic gout, unspecified site; D64.9 Anemia, unspecified; E55.9 Vitamin D deficiency, unspecified; R35.0 Frequency of micturition

== ENCOUNTER → 2024-10-28 12:34 | Outpatient (BNVA) | payer MEDICARE, SELFPAY | PROVIDERS: PCP Internal Medicine; Visit Provider Internal Medicine | DX: I25.10 Atherosclerotic heart disease of native coronary artery without angina pectoris (principal); E78.00 Pure hypercholesterolemia, unspecified; E11.9 Type 2 diabetes mellitus without complications; I10 Essential (primary) hypertension; M10.00 Idiopathic gout, unspecified site; D64.9 Anemia, unspecified; E55.9 Vitamin D deficiency, unspecified; R35.0 Frequency of micturition | CPT/HCPCS: 96127; 99212 ==

== ENCOUNTER 2025-02-27 08:34 | Outpatient (REF) | payer MEDICARE, SELFPAY ==
--- OUTSIDE RECORDS SUMMARY | 2025-02-27 08:49 | XMS_ITS | Patient Health Record ---
Author Organization [facility] Address [address] [place] [address] Care Team Providers Care Export Coordinator Name Role Phone Daniel GORMAN, Rafael Primary Care Provider Jonatan Rodríguez Unavailable [phone] Reason For Referral No Information Medications Medication [...] Problem History of polyp of colon (situation) (030829393) Personal history of colonic polyps (V12.72) Active confirmed Problem Screening for malignant neoplasm of colon (115684905) Special screening for malignant neoplasms, colon (V76.51) Active confirmed Plan Of Treatment Future Test Test Name Order Date COLONOSCOPY 03/08/2011 Insurance Providers Payer Name Payer Address Payer Phone Subscriber Number Group Number Insured Name Patient Relationship to Insured Coverage Start Date Coverage End Date MEDICARE OF [place] [address] [place] [address] [phone] [id number] CARINE LEE Self - patient is the insured [employer] ATT[employer] CLAIMS [address] [place] [phone] [id number] CARINE LEE Self - patient is the insured Medical (General) History Medical History History ICD Code hypertension hyperlipidemia gout [place], lung disease, stroke, or diabetes Surgical History Surgery Date(Month/Year) coronary artery bypass surgery in the appendectomy
[2025-02-27 10:34] LABS: MANUAL DIFF FLAG NO
[2025-02-27 10:43] LABS: Hematocrit 39.2 % (42.0-52.0); Hemoglobin 12.6 g/dl (14.0-18.0); Imm Gran Abs Auto 0.01 X10*3/uL (0.00-0.03); Imm Gran Pct Auto 0.1 % (0.0-0.4); Lymphocytes Absolute Auto 2.0 X10*3/uL (1.2-4.9); Mean Corpuscular HGB Conc 32.1 g/dl (31.0-36.0); Mean Corpuscular Hemoglobin 29.6 pg (27.0-33.0); Mean Corpuscular Volume 92.2 fL (80.0-98.0); NRBC Abs Auto 0.000 X10*3/uL (0.0-0.012); NRBC Pct Auto 0.0 /100WBC (0.0-0.2); Platelet Count 149 X10*3/uL (160-400); Red Blood Count 4.25 X10*6/uL (4.60-5.80); White Blood Count 6.7 X10*3/uL (4.8-10.8)
[2025-02-27 11:16] LABS: Alanine Aminotransferase 21 U/L (0-40); Albumin Level 4.3 g/dL (3.5-5.0); Alkaline Phosphatase 64 U/L (39-117); Anion Gap 11 (12-20); Aspartate Amino Transferase 32 U/L (5-37); Blood Urea Nitrogen 23 mg/dL (9-16); Calcium 9.0 mg/dL (8.4-10.2); Carbon Dioxide 32 mmol/L (22-29); Chloride 103 mmol/L (96-108); Cholesterol 100 mg/dL (<200); Estimated Glomerular Filt Rate > 60; HDL Cholesterol 28 mg/dL (>40); Potassium 3.5 mmol/L (3.3-5.1); Sodium 142 mmol/L (135-145); Total Protein 7.1 g/dL (6.5-8.0); Triglycerides 62 mg/dL (<150); Uric Acid 3.5 mg/dL (3.4-7.0)
[2025-02-27 11:31] LABS: Folate 13.6 ng/mL (> or = 4.0); Vitamin B12 638 pg/mL (200-900)
[2025-02-27 16:19] LABS: Appearance Urine Clear; Glucose Urine UA 500 mg/dL (Negative); PH 6.5 (5.0-9.0); Specific Gravity - Urine 1.025 (1.005-1.025); UMIC TRIGGER UACC YES
[2025-02-27 16:45] LABS: Microalbum/Creatinine Ratio Ur 10.5 ug/mg cr (<30)
== END 2025-02-27 08:35 | disposition home or self-care (01) ==
LOC: HO.HMGCLDS 08:34
PROVIDERS: PCP Internal Medicine; Visit Provider Internal Medicine
DX: I10 Essential (primary) hypertension (principal); E78.00 Pure hypercholesterolemia, unspecified; E53.8 Deficiency of other specified B group vitamins; D64.9 Anemia, unspecified; E55.9 Vitamin D deficiency, unspecified; E11.9 Type 2 diabetes mellitus without complications; M10.9 Gout, unspecified
CPT/HCPCS: 36415; 80053; 80061; 81001; 82043; 82306; 82570; 82607; 82746; 83036; 84443; 84550; 85025

== ENCOUNTER 2025-03-02 13:29 | Outpatient (AMB) | payer MEDICARE, SELFPAY ==
--- NOTE | 2025-03-02 13:35 | A.OFFPC_ITS ---
Vital Signs 03/02/25 13:36 03/02/25 14:19 Height 5 ft 7 in Weight 152 lb 8 oz BMI 23.9 BP 170/78 H 160/88 H Blood Pressure Location Rt brachial Lt brachial Position Sitting Sitting Pulse 70 Pulse Source Pulse Oximeter Temp 97.1 F Temp Source Temporal Artery Scan Pulse Oximetry (%) 99 Oxygen Delivery Method Room Air Intake Visit Re[facility]: [facility] Allergies No Known Allergies Allergy (Verified 03/02/25 14:13) Medication List - Last Reconciled 03/02/25 by Rafael Sanchez MD allopurinol 300 mg PO DAILY ascorbate calcium (vitamin C) 500 mg PO DAILY aspirin (Adult Aspirin Regimen) 81 mg PO DAILY atenolol 25 mg PO DAILY blood sugar diagnostic (FreeStyle Lite Strips) 1 strip miscellaneous TID cholecalciferol (vitamin D3) 25 mcg PO DAILY hydrochlorothiazide 25 mg PO DAILY Lactobacillus rhamnosus GG (Culturelle) 15,000 mmu cells PO DAILY lancets (FreeStyle Lancets) 1 gauge topical TID losartan 100 mg PO DAILY metformin 1,000 mg PO BID omega-3 fatty acids-fish oil 360-1,200 mg (Fish Oil) 1 cap PO DAILY simvastatin 40 mg PO QPM Tradjenta (linagliptin) 5 mg PO DAILY 90 days NS Tobacco use date assessed: 03/02/25 Fall risk assessment: No Falls in past year Dental Screening Dental Screen Date: 03/02/25 Did you have a dental visit in the last 12 months?: Yes Did you have a dental problem in the last 6 months where you did not have access to dental care?: No Was dental information given to patient?: Patient has dentist H[facility] HPI Details Patient comes in today for his follow-up visit States that he feels okay He denies any headaches or dizziness Denies any chest pains, no shortness of breath No nausea/vomiting, no abdominal pain No change in bowel habits noted He had his follow-up labs done a few days ago - to discuss his results ON LICENSE OF [facility] Medical History COVID-19 vaccine series completed History of COVID-19 History of postoperative nausea Left inguinal hernia Left inguinal hernia Vitamin D deficiency Gout Pure hypercholesterolemia Benign essential hypertension Diabetes mellitus Coronary artery disease Surgical History S/P left inguinal hernia repair (~10/15/20) Hx of colonoscopy (~04/2011) History of heart bypass surgery History of appendectomy Family History Father CVD (cardiovascular disease) Mother Chronic mental illness Family/Other Liver cancer Other Mental health problem Social History Housing: House Alcohol intake: current Alcohol intake frequency: holidays/special occasions only Patient Tobacco Use Status: Never used Tobacco Tobacco use type: Cigarette e-Cigarette/Vaping Use: Never Used Second Hand Smoke Exposure: Yes service: Yes Current occupational status: retired Cognitive needs: No Hearing needs: No Vision needs: Yes Questionnaire PHQ-9 Over the last 2 weeks, how often have you been bothered by any of the following problems? 1. Little interest or pleasure in doing things: not at all 2. Feeling down, depressed, or hopeless: not at all 3. Trouble falling or staying asleep, or sleeping too much: not at all 4. Feeling tired or having little energy: not at all 5. Poor appetite or overeating: not at all 6. Feeling bad about yourself - or that you are a failure or have let yourself or your family down: not at all 7. Trouble concentrating on things, such as reading the newspaper or watching television: not at all 8. Moving or speaking so slowly that other people could have noticed. Or the opposite - being so fidgety or restless that you have been moving around a lot more than usual: not at all 9. Thoughts that you would be better off or of hurting yourself in some way: not at all Total score: 0 Depression Screening Interpretation: Negative Depression Screening Done: Yes 97940 - PHQ-9 Billing: Yes Source: Developed by Drs. Jonatan Arenas, Rowena Grewal, Carlos Saldivar and colleagues, with an educational luh from [employer]. Thrive Questionnaire Date Thrive assessed: 03/02/25 I am a: Patient What is your living situation today?: I have a steady place to live Within the past 12 months, did the food you bought not last and you didn't have the money to get more?: Never true Within the past 12 months, did you worry whether your food would run out before you got money to buy more?: Never true Do you have trouble paying for medicines?: No Do you have trouble getting transportation to medical appointments?: No Do you have trouble paying your heating and electricity bill?: No Do you have trouble taking care of your child, family member or friend?: No Do you have trouble with day-to-day activities such as bathing, preparing meals, shopping, managing finances, etc.?: No Are you currently unemployed and looking for a job?: No Are you interested in more education?: No Please select the resources that you would like help with: None Currently or been in a relationship where the following occur: No concerns reported THRIVE Score: 0 AUDIT C Alcohol Use Questionnaire (AUDIT-C) 1. How often do you have a drink containing alcohol?: Monthly or less 2. How many drinks containing alcohol do you have on a typical day when you are drinking?: 1 or 2 3. How often do you have six or more drinks on one occasion?: Never Total Score: 1 Score Reviewed/Action Taken: Yes RAIMUNDO-7 AMB Questionnaire RAIMUNDO-7 Date RAIMUNDO - 7 assessed: 03/02/25 Feeling nervous, anxious, or on edge: 0 = Not at all Not being able to stop or control worryin = Not at all Worrying too much about different things: 0 = Not at all Trouble relaxin = Not at all Being so restless that it is hard to sit still: 0 = Not at all Becoming easily annoyed or irritable: 0 = Not at all Feeling afraid as if something awful might happen: 0 = Not at all Total RAIMUNDO-7 score (0-4 normal; 5-9 mild; 10-14 moderate; 15-21 severe): 0 Source: Developed by Drs. Jonatan Arenas, Rowena Grewal, Carlos Saldivar and colleagues, with an educational luh from [employer]. Review of Systems Const Denies chills, Denies fatigue, Denies fever(s) and Denies headache(s) ENT Denies dysphagia, Denies dizziness, Denies otalgia, Denies headache(s), Denies neck pain, Denies odynophagia and Denies sore throat Card Denies chest pain, Denies palpitations and Denies dyspnea Resp Denies cough and Denies dyspnea GI Denies abdominal pain, Denies constipation, Denies dysphagia, Denies diarrhea, Denies nausea, Denies odynophagia and Denies vomiting Denies dysuria, Denies nocturia and Denies urinary frequency Musc Denies back pain and Denies neck pain Skin/Breast Denies rash Neuro Denies dizziness and Denies headache(s) Endo Denies fatigue and Denies palpitations Physical exam (Primary Care) Vital Signs: Last Vital Signs Temp 97.1 F 03/02/25 13:36 Pulse 70 03/02/25 13:36 BP 160/88 H 03/02/25 14:19 Pulse Ox 99 03/02/25 13:36 Oxygen Delivery Method Room Air 03/02/25 13:36 BMI result Body Mass Index 23.9 Tobacco/Smoking Status: Tobacco use Status Tobacco use date assessed 03/02/25 03/02/25 13:48 Patient Tobacco Use Status Never used Tobacco 03/02/25 13:37 Tobacco use type Cigarette 03/02/25 13:48 e-Cigarette/Vaping Use Never Used 03/02/25 13:37 PHQ-9: PHQ-9 Score PHQ-9: Total score 0 03/02/25 21:50 Depression Screening Interpretation: Negative Thrive Assessment: Date of Thrive Assessment Date Thrive assessed 03/02/25 03/02/25 13:48 Currently or been in a relationship where the following occur: No concerns reported Const General: no acute distress and alert HENMT Ears: TM's normal bilaterally and EAC's normal Throat: Yes posterior oropharynx normal and Yes tonsils normal (no TP congestion) Neck Neck: Yes supple and No lymphadenopathy Thyroid: Thyroid normal Resp Auscultation: clear to auscultation bilaterally, no rales and no wheezes Cardio Rate: regular rate Rhythm: regular rhythm Heart sounds: no murmurs GI Palpation (GI): Soft to palpation and nontender Auscultation: normal bowel sounds General: Yes no CVA tenderness Back/Spine/Pelvis Back: no CVA tenderness Thoracic/Lumbar Spine: No lumbar spinal tenderness Skin Rashes: no rashes Extrem General: Yes no clubbing, cyanosis or edema Results Reviewed Results Reviewed: Laboratory Tests 02/27/25 02/27/25 08:38 13:15 WBC 6.7 Hgb 12.6 L Hct 39.2 L Plt Count 149 L Sodium 142 Potassium 3.5 Creatinine 0.87 Estimated GFR > 60 Fasting Glucose 133 H Hemoglobin A1c % 6.7 H Uric Acid 3.5 Calcium 9.0 AST 32 ALT 21 Triglycerides 62 Cholesterol 100 LDL Cholesterol, Calc 60 HDL Cholesterol 28 L Vitamin B12 638 25-OH Vitamin D Total 45.8 TSH 2.68 Ur Specific [place] 1.025 Urine Protein Negative Urine Glucose (UA) 500 H Urine Blood Negative Urine Nitrite Negative Ur Leukocyte Esterase Trace H Microalb/Creat Ratio 10.5 Coding Level of Care Code Est Pt Level 4 (31462) Diagnoses Coronary artery disease involving [place] coronary artery of [place] heart without angina pectoris I25.10 Coronary Disease-Associated Artery/Lesion type: [place] artery [place] vs. transplanted heart: [place] heart Associated angina: without angina Pure hypercholesterolemia E78.00 Type 2 diabetes mellitus without complication, without long-term current use of insulin E11.9 Diabetes mellitus type: type 2 Diabetes mellitus watermaster insulin use: without watermaster use Diabetes mellitus complication status: without complication Benign essential hypertension I10 Idiopathic gout, unspecified chronicity, unspecified site M10.00 Gout site: unspecified site Gout etiology: idiopathic Chronicity: unspecified Mild chronic anemia D64.9 Vitamin D deficiency E55.9 Urinary frequency R35.0 Additional Codes PHQ-9 - 26109 - PHQ-9 Billing: Yes ([id number]) Assessment & Plan Assessment & Plan (1) Coronary artery disease: Code(s): I25.10 - Atherosclerotic heart disease of [place] coronary artery without angina pectoris Category: Medical Qualifiers: Coronary Disease-Associated Artery/Lesion type: [place] artery [place] vs. transplanted heart: [place] heart Associated angina: without angina Qualified Code(s): I25.10 - Atherosclerotic heart disease of [place] coronary artery without angina pectoris Plan: Continue Aspirin 81 mg QD Patient remains asymptomatic from a cardiac standpoint Follow up with cardiology as scheduled (2) Pure hypercholesterolemia: Code(s): E78.00 - Pure hypercholesterolemia, unspecified Category: Medical Plan: Results of his labs done a few days ago reviewed and discussed with patient - his cholesterol levels remain well-controlled on his current Rx Reinforced low cholesterol diet Continue Simvastatin 40 mg QD Will recheck his labs and fasting lipids in 4 months for follow up (3) Diabetes mellitus: Code(s): E11.9 - Type 2 diabetes mellitus without complications Category: Medical Qualifiers: Diabetes mellitus type: type 2 Diabetes mellitus watermaster insulin use: without watermaster use Diabetes mellitus complication status: without complication Qualified Code(s): E11.9 - Type 2 diabetes mellitus without complications Plan: His HgbA1c was 6.7% on his labs done a few days ago (was previously at 6.8% a few months ago) - goal is at least <7.0% but ideally <6.5% Reinforced diabetic diet Continue Metformin 1000 mg BID and Tradjenta 5 mg QD (4) Benign essential hypertension: Code(s): I10 - Essential (primary) hypertension Category: Medical Plan: Reinforced low sodium diet - goal is systolic BP of at least 140 mm or less Continue Losartan 100 mg QD, Atenolol 25 mg QD and HCTZ 25 mg QD (5) Gout: Code(s): M10.9 - Gout, unspecified Category: Medical Qualifiers: Gout site: unspecified site Gout etiology: idiopathic Chronicity: unspecified Qualified Code(s): M10.00 - Idiopathic gout, unspecified site Plan: Patient has had no acute gout flares lately; serum uric acid level was again normal on his recent labs Reinforced low purine diet Continue Allopurinol?300 mg QD (6) Mild chronic anemia: Code(s): D64.9 - Anemia, unspecified Category: Medical Plan: Work ups done in the past to check for iron deficiency and B12 deficiency have all come back normal Have advised patient that he's had mild anemia consistently for at least the past 8 to 10 years but his H/H have been steady and have not really changed much over the years and if he has no acute symptoms related to his mild anemia, then no interventions or further work ups are needed at this time Will just continue to monitor his CBC regularly for now (7) Vitamin D deficiency: Code(s): E55.9 - Vitamin D deficiency, unspecified Category: Medical Plan: Continue Vitamin D3 1000 units QD (8) Urinary frequency: Code(s): R35.0 - Frequency of micturition Category: Medical Plan: This is most likely due to BPH His PSA level came out normal on his labs done last year Discussed again options of Rx to help control his urinary symptoms and/or referral to urology for further evaluation and management - patient states that he will call for Rx or referral if his symptoms progress Plan Follow-up in 4 months Orders: Orders Comprehensive [place]. Panel Fast 4 Months E78.00 - Pure hypercholesterolemia, unspecified Hemoglobin A1c 4 Months E11.9 - Type 2 diabetes mellitus without complications UA CC w/rflx Micro + Cult 4 Months R30.0 - Dysuria Vitamin B12 and Folate 4 Months E53.8 - Deficiency of other specified B group vitamins Vitamin D 25-OH Total 4 Months E55.9 - Vitamin D deficiency, unspecified Complete Blood Count Auto Diff 4 Months D64.9 - Anemia, unspecified Lipid Panel 4 Months E78.00 - Pure hypercholesterolemia, unspecified Microalbumin, Random (w Creat) 4 Months E11.9 - Type 2 diabetes mellitus without complications TSH reflex Free T4 4 Months E78.00 - Pure hypercholesterolemia, unspecified
[2025-03-02 13:36] VITALS: BP 170/78; PULSE 70; TEMP 36.2; O2SAT 99; BMI 23.9
[2025-03-02 14:19] VITALS: BP 160/88
== END 2025-03-02 14:28 | disposition home or self-care (01) ==
LOC: HO.HMCH 13:30
PROVIDERS: PCP Internal Medicine; Visit Provider Internal Medicine
DX: I25.10 Atherosclerotic heart disease of native coronary artery without angina pectoris (principal); E78.00 Pure hypercholesterolemia, unspecified; E11.9 Type 2 diabetes mellitus without complications; I10 Essential (primary) hypertension; M10.00 Idiopathic gout, unspecified site; D64.9 Anemia, unspecified; E55.9 Vitamin D deficiency, unspecified; R35.0 Frequency of micturition

== ENCOUNTER → 2025-03-02 13:29 | Outpatient (BNVA) | payer MEDICARE, SELFPAY | PROVIDERS: PCP Internal Medicine; Visit Provider Internal Medicine | DX: I25.10 Atherosclerotic heart disease of native coronary artery without angina pectoris (principal); E78.00 Pure hypercholesterolemia, unspecified; E11.9 Type 2 diabetes mellitus without complications; I10 Essential (primary) hypertension; D64.9 Anemia, unspecified; R35.0 Frequency of micturition; E55.9 Vitamin D deficiency, unspecified | CPT/HCPCS: 96127; 99212 ==

== ENCOUNTER → 2025-03-19 10:20 | Outpatient (BNVA) | payer MEDICARE, SELFPAY | PROVIDERS: PCP Internal Medicine | DX: Z01.30 Encounter for examination of blood pressure without abnormal findings (principal); I10 Essential (primary) hypertension | CPT/HCPCS: 99211 ==